=== PATIENT | female | born 1980 | race Caucasian/White ===

== ENCOUNTER 2018-03-05 23:43 | Emergency (ER) | payer BC, OTHER, SELFPAY ==
[2018-03-06 01:38] LABS: Protime INR 0.97
[2018-03-06 01:39] LABS: Absolute Lymphocytes (CBC) 1.8 K/uL (0.7-4.9); Absolute Monocytes 0.6 K/uL (0.1-1.3); Absolute Neutrophil 10.5 K/uL (1.8-8.0); Basophils % 0.5 % (0-1.3); Eosinophils % 1.3 % (0-4.4); Hematocrit 36.6 % (36.0-45.0); Lymphocytes % 13.9 % (15.3-44.8); MCH 28.8 pg (27.0-35.0); MPV 10.5 fL (7.6-11.3); Monocytes % 4.4 % (3.3-12.3); RBC Red Blood Cell Count 4.16 M/uL (3.86-4.86)
[2018-03-06 01:40] LABS: Bicarbonate 25 mEq/L (21-31); Glucose Level 99 mg/dL (65-120); Lipase 28 U/L (22-51); Sodium Level 138 mEq/L (135-145)
[2018-03-06 01:47] LABS: ALT/SGPT 18 IU/L (10-60); AST/SGOT 33 IU/L (10-42); Albumin 3.6 g/dL (3.2-5.5); Alkaline Phosphatase 113 IU/L (42-121); BUN Blood Urea Nitrogen 10 mg/dL (6-20); Bilirubin Direct 0.1 mg/dL (0-0.2); Bilirubin Total 0.2 mg/dL (0.3-1.2); Creatine Phosphokinase 130 IU/L (22-269); Magnesium 1.6 mg/dL (1.8-2.5); Protein, Total 7.1 g/dL (6.0-8.3)
[2018-03-06 01:49] LABS: CKMB Creatine Kinase MB 2.9 ng/ml (0.3-4.0)
[2018-03-06] MEDS ORDERED: MAGNESIUM SULFATE 1 gm IVPB 1 GM/100 ML BAG IV ONE (02:04)
[2018-03-06 03:28] LABS: Urine Specific Gravity 1.015 (1.005-1.030)
[2018-03-06 03:28] LABS: Urine Blood NEGATIVE (NEG); Urine Glucose NEGATIVE (NEG); Urine Protein NEGATIVE (NEG); Urine Specific Gravity 1.015 (1.005-1.030)
--- NOTE | 2018-03-06 03:46 | ER ---
Nurse's Notes [facility] Name: Juanis Davis Age: 37 yrs Sex: Female : 1980 Arrival Date: 03/05/2018 Time: 23:46 Bed 6 Private MD: Diagnosis: Chest pain, unspecified;Urinary tract infection, site not specified Presentation: 03/05 23:49 Presenting complaint: EMS states: "Patient was having back pain and then in move to the ao epigastric area. Patient described as midsternal chest pain. Patient was nauseated and vomited x2 as reported by patient. Patient also complained of SOB." Patient pain level is at 3/10 at this moment. Aspirin [address] to the hospital. Transition of care: patient was not received from another setting of care. Onset of symptoms was March 05, 2018 at 23:00. Initial Sepsis Screen: Does the patient meet any 2 criteria? No. Patient's initial sepsis screen is negative. Does the patient have a suspected source of infection? No. Patient's initial sepsis screen is negative. Care prior to arrival: Medication(s) given: ASA, 325 mg, zofran 4 mg. 23:49 Method Of Arrival: EMS: [facility] ao 23:49 Acuity: FRANCIA 3 ao Triage Assessment: 03/06 00:22 General: Appears in no apparent distress. comfortable, Behavior is calm, cooperative, ao appropriate for age. Pain: Complains of pain in Epigastric pain. 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 - Social history:: Smoking status: Patient/guardian denies using tobacco, Patient/guardian denies using alcohol, street drugs. Screenin:21 Abuse screen: Denies threats or abuse. Denies injuries from another. Nutritional ao screening: No deficits noted. Tuberculosis screening: No symptoms or risk factors identified. Fall Risk None identified. Assessment: 03/05 23:50 General: Appears in no apparent distress. uncomfortable, Behavior is calm, cooperative, ao appropriate for age. Pain: Complains of pain in Epigastric area Pain currently is 3 out of 10 on a pain scale. Neuro: Level of Consciousness is awake, alert, obeys commands, Oriented to person, place, time, situation, Appropriate for age Speech is normal, Facial symmetry appears normal. Cardiovascular: Heart tones S1 S2 Capillary refill < 3 seconds Patient's skin is warm and dry. Respiratory: Airway is patent Respiratory effort is even, unlabored, Respiratory pattern is regular, symmetrical, Breath sounds are clear bilaterally. GI: Abdomen is non-distended. : No signs and/or symptoms were reported regarding the genitourinary system. EENT: No signs and/or symptoms were reported regarding the EENT system. Derm: No signs and/or symptoms reported regarding the dermatologic system. Skin temperature is warm. Musculoskeletal: No signs and/or symptoms reported regarding the musculoskeletal system. 03/06 00:51 Reassessment: Patient appears in no apparent distress at this time. No changes from ao previously documented assessment. Patient and/or family updated on plan of care and expected duration. Pain level reassessed. Patient states feeling better. 02:11 Reassessment: Patient appears in no apparent distress at this time. No changes from ao previously documented assessment. Patient and/or family updated on plan of care and expected duration. Pain level reassessed. Vital Signs: 03/05 23:53 BP 139 / 86; Pulse 86; Resp 16; Temp 98.4(O); Pulse Ox 98% on R/A; Weight 92.99 kg; ao Height 5 ft. 3 in. (160.02 cm); Pain 3/10; 03/06 02:11 BP 128 / 81; Pulse 69; Resp 14; Pulse Ox 100% on R/A; Pain 0/10; ao 03:47 BP 122 / 77; Pulse 75; Resp 16; Temp 98.5; Pulse Ox 100% ; Pain 0/10; tl1 03/05 23:53 Body Mass Index 36.31 (92.99 kg, 160.02 cm) ao ED Course: 03/05 23:46 Patient arrived in ED. em1 23:47 Tristan Cunha NP is PHCP. pm1 23:47 Paul Lozano MD is Attending Physician. pm1 23:49 Jeffery Stoner RN is Primary Nurse. ao 23:50 Maintain EMS IV. Dressing intact. Site clean \\T\\ dry. Gauge \\T\\ site: 22 R AC. ao 23:53 Triage completed. ao 23:55 Arm band placed on Patient placed in an exam room, Patient notified of wait time Emesis ao basin given. 03/06 00:22 Patient has correct armband on for positive identification. court recording monitor on. Pulse ao ox on. NIBP on. 00:36 XRAY Chest (1 view) In Process Unspecified. EDMS 03:04 Report given to PRINCESS Ordoñez. ao 03:49 No provider procedures requiring assistance completed. IV discontinued, intact, tl1 bleeding controlled, No redness/swelling at site. Pressure dressing applied. Administered Medications: 02:15 Drug: Magnesium Sulfate 1 grams Route: IVPB; Infused Over: 1 hrs; Site: right ao antecubital; 04:08 Follow up: IV Status: Completed infusion tl1 04:07 Drug: Rocephin 1 grams Route: IV; Rate: calculated rate; Site: right antecubital; tl1 04:08 Follow up: IV Status: Completed infusion tl1 Outcome: 03:46 Discharge ordered by MD. pm1 03:48 Discharged to home ambulatory, with family. tl1 03:48 Condition: good 03:48 Discharge instructions given to patient, family, Instructed on discharge instructions, follow up and referral plans. Demonstrated understanding of instructions, follow-up care, medications. 04:11 Patient left the ED. tl1 Signatures: Dispatcher [employer] Romero Shahid em1 Smita Lewis RN RN tl1 Jeffery Stoner RN RN ao Marinas, Patrick, ADVERTISING SUPERVISOR ADVERTISING SUPERVISOR pm1
--- NOTE | 2018-03-06 03:46 | EDPHYS ---
Physician Documentation [facility] Name: Juanis Davis Age: 37 yrs Sex: Female : 1980 Arrival Date: 03/05/2018 Time: 23:46 Bed 6 Private MD: ED Physician Paul Lozano HPI: 03/06 00:00 This 37 yrs old Female presents to ER via EMS with complaints of chest pain. pm1 00:00 The patient or guardian reports chest pain that is located primarily in the epigastric pm1 area. Associated signs and symptoms: Pertinent positives: shortness of breath, Pertinent negatives: cough, nausea, near syncope, palpitations, vomiting. The chest pain is described as aching. Duration: The patient or guardian reports a single episode. Modifying factors: the symptoms are aggravated by nothing. Severity of pain: in the emergency department the pain has improved. Patient with onset of pain in back and epigastric area 1 hour prior to ER arrival. Patient with similar symptoms in the past that is resolved with Tums but today's episode was worse. 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 - Social history:: Smoking status: Patient/guardian denies using tobacco, Patient/guardian denies using alcohol, street drugs. ROS: 00:00 Constitutional: Negative for fever, chills, and weight loss, Eyes: Negative for injury, pm1 pain, redness, and discharge, ENT: Negative for injury, pain, and discharge, Neck: Negative for injury, pain, and swelling. 00:00 : Negative for injury, bleeding, discharge, and swelling, MS/Extremity: Negative for injury and deformity, Skin: Negative for injury, rash, and discoloration, Neuro: Negative for headache, weakness, numbness, tingling, and seizure. 00:00 Cardiovascular: Positive for chest pain, Negative for palpitations. 00:00 Respiratory: Positive for shortness of breath, Negative for cough, sputum production, wheezing. 00:00 Abdomen/GI: Positive for abdominal pain, Negative for nausea, vomiting, and diarrhea. 00:00 Back: Positive for Pain. Exam: 00:00 Constitutional: This is a well developed, well nourished patient who is awake, alert, pm1 and in no acute distress. Head/Face: Normocephalic, atraumatic. Eyes: Pupils equal round and reactive to light, extra-ocular motions intact. Lids and lashes normal. Conjunctiva and sclera are non-icteric and not injected. Cornea within normal limits. Periorbital areas with no swelling, redness, or edema. ENT: Nares patent. No nasal discharge, no septal abnormalities noted. Tympanic membranes are normal and external auditory canals are clear. Oropharynx with no redness, swelling, or masses, exudates, or evidence of obstruction, uvula midline. Mucous membranes moist. Neck: Trachea midline, no thyromegaly or masses palpated, and no cervical lymphadenopathy. Supple, full range of motion without nuchal rigidity, or vertebral point tenderness. No Meningismus. Chest/axilla: Normal chest wall appearance and motion. Nontender with no deformity. No lesions are appreciated. Cardiovascular: Regular rate and rhythm with a normal S1 and S2. No gallops, murmurs, or rubs. Normal PMI, no JVD. No pulse deficits. Respiratory: Lungs have equal breath sounds bilaterally, clear to auscultation and percussion. No rales, rhonchi or wheezes noted. No increased work of breathing, no retractions or nasal flaring. 00:00 Back: No spinal tenderness. No costovertebral tenderness. Full range of motion. Skin: Warm, dry with normal turgor. Normal color with no rashes, no lesions, and no evidence of cellulitis. MS/ Extremity: Pulses equal, no cyanosis. Neurovascular intact. Full, normal range of motion. 00:00 Abdomen/GI: Inspection: abdomen appears normal, Bowel sounds: normal, Palpation: soft, mild abdominal tenderness, in the epigastric area. 00:00 Neuro: Orientation: is normal, Motor: is normal, moves all fours, Gait: is steady, at a normal pace, without difficulty. Vital Signs: 03/05 23:53 BP 139 / 86; Pulse 86; Resp 16; Temp 98.4(O); Pulse Ox 98% on R/A; Weight 92.99 kg; ao Height 5 ft. 3 in. (160.02 cm); Pain 3/10; 03/06 02:11 BP 128 / 81; Pulse 69; Resp 14; Pulse Ox 100% on R/A; Pain 0/10; ao 03:47 BP 122 / 77; Pulse 75; Resp 16; Temp 98.5; Pulse Ox 100% ; Pain 0/10; tl1 03/05 23:53 Body Mass Index 36.31 (92.99 kg, 160.02 cm) ao MDM: 03/05 23:48 Patient medically screened. rose 03/06 03:45 Data reviewed: vital signs. Data interpreted: Pulse oximetry: on room air is 100 %. pm1 Interpretation: normal. Counseling: I had a detailed discussion with the patient and/or guardian regarding: the historical points, exam findings, and any diagnostic results supporting the discharge/admit diagnosis, lab results, radiology results, the need for outpatient follow up, to return to the emergency department if symptoms worsen or persist or if there are any questions or concerns that arise at home. 03:45 Differential diagnosis: acute myocardial infarction, cholecystitis, Cholelithiasis pm1 gastroesophageal reflux disease (GERD), pancreatitis, peptic ulcer disease. 04:10 PRACHI Risk Score: TOTAL SCORE = 0. ED course: atypical chest pain with troponin negative pm1 4 hours after onset of symptoms. Patient currently pain free and symptoms similar to prior episodes resolved with Tums. 03/06 00:04 Order name: Basic Metabolic Panel; Complete Time: 02:01 pm1 03/06 00:04 Order name: BNP; Complete Time: 02:08 pm1 03/06 00:04 Order name: CBC with Diff; Complete Time: 01:43 pm1 03/06 00:04 Order name: Ckmb; Complete Time: 02:01 pm1 03/06 00:04 Order name: CPK; Complete Time: 02:01 pm1 03/06 00:04 Order name: LFT's; Complete Time: 02:01 pm1 03/06 00:04 Order name: Magnesium; Complete Time: 02:01 pm1 03/06 00:04 Order name: PT-INR; Complete Time: 01:43 pm1 03/06 00:04 Order name: Ptt, Activated; Complete Time: 01:43 pm1 03/06 00:04 Order name: Troponin (emerg Dept Use Only); Complete Time: 02:01 pm1 03/06 01:29 Order name: Lipase; Complete Time: 02:01 EDMS 03/06 02:34 Order name: Troponin (emerg Dept Use Only); Complete Time: 03:45 pm1 03/06 02:47 Order name: Urine Dipstick--Ancillary (enter results); Complete Time: 03:45 em1 03/06 00:04 Order name: Urine Test (obtain specimen); Complete Time: 02:47 pm1 03/06 00:04 Order name: XRAY Chest (1 view) pm1 03/06 00:04 Order name: EKG; Complete Time: 00:05 pm1 03/06 00:04 Order name: Cardiac monitoring; Complete Time: 02:03 pm1 03/06 00:04 Order name: EKG - Nurse/Tech; Complete Time: 02:03 pm1 03/06 00:04 Order name: IV Saline Lock; Complete Time: 00:20 pm1 03/06 00:04 Order name: Labs collected and sent; Complete Time: 02:03 pm1 03/06 00:04 Order name: O2 Per Protocol; Complete Time: 00:20 pm1 03/06 00:04 Order name: O2 Sat Monitoring; Complete Time: 00:20 pm1 03/06 00:04 Order name: Urine Dipstick-Ancillary (obtain specimen); Complete Time: 02:47 pm1 03/06 02:58 Order name: Urine --Ancillary (enter results); Complete Time: 03:45 em1 Administered Medications: 02:15 Drug: Magnesium Sulfate 1 grams Route: IVPB; Infused Over: 1 hrs; Site: right ao antecubital; 04:08 Follow up: IV Status: Completed infusion tl1 04:07 Drug: Rocephin 1 grams Route: IV; Rate: calculated rate; Site: right antecubital; tl1 04:08 Follow up: IV Status: Completed infusion tl1 Disposition: 03/06/18 03:46 Discharged to Home. Impression: Chest pain, unspecified, Urinary tract infection, site not specified. - Condition is Stable. - Discharge Instructions: Nonspecific Chest Pain, Urinary Tract Infection. - Prescriptions for Bactrim DS 800- 160 mg Oral Tablet - take 1 tablet by ORAL route every 12 hours for 10 days; 20 tablet. - Medication Reconciliation Form, Thank You Letter form. - Follow up: Emergency Department; When: As needed; Reason: Worsening of condition. Follow up: Private Physician; When: 2 - 3 days; Reason: Recheck today's complaints, Continuance of care, Re-evaluation by your physician. - Problem is new. - Symptoms have improved. Addendum: 03/07/2018 07:28 Co-signature as Attending Physician, Paul Lozano MD I agree with the assessment and c tyler plan of care. Signatures: Dispatcher [employer] Paul Quiroga MD MD cha Lasagna, Tonya, RN RN tl1 Jeffery Stoner RN RN Tristan Elam NP LINUX SERVER ADMINISTRATOR pm1 Corrections: (The following items were deleted from the chart) 03/06 01:28 00:20 LIPASE+C.LAB.BRZ ordered. [facility]
[2018-03-06] MEDS ORDERED: CEFTRIAXONE/SWI 1gm 1 GM/10 ML SYR ONE (03:57)
--- NOTE | 2018-03-06 07:14 | EKG ---
Test Date: 2018-03-06 Test Time: 01:02:04 Scientific Informatics Project Leader: REGINA MEASUREMENT RESULTS: Intervals: Rate: 76 OR: 158 QRSD: 84 QT: 392 QTc: 441 [place]: P: 20 OR: 158 QRS: 33 T: 20 INTERPRETIVE STATEMENTS: Normal sinus rhythm Normal ECG No previous ECG available for comparison Electronically Signed On 03-06-18 07:13:39 CDT by Nikita Dietrich
--- NOTE | 2018-03-06 08:45 | RAD REPORT ---
EXAM DESCRIPTION: Gini Single View03/06/2018 12:36 am CLINICAL HISTORY: Chest pain COMPARISON: none FINDINGS: A small opacity overlies the right lung base. The remainder of the lungs appear Clear of acute infiltrate. The heart is normal size IMPRESSION: Small opacity overlying the right lung base probably representing confluence of ribs and vessels. A small right basilar pulmonary infiltrate is another consideration. If the patient's sympt oms persist PA and lateral chest series would be recommended
== END 2018-03-06 04:11 | disposition home or self-care (01) ==
LOC: ER 23:43
DX: N39.0 Urinary tract infection, site not specified (principal)
CPT/HCPCS: 36415; 71045; 80048; 80076; 81003; 81025; 82550; 82553; 83690; 83735; 83880; 84484; 85025; 85610; 85730; 93005; 96365; 96366; 96375; 99284; J0696; J3475

== ENCOUNTER 2020-05-03 11:43 | Emergency (ER) | payer BC, SELFPAY ==
[2020-05-03] MEDS ORDERED: ONDANSETRON 4 MG/2 ML VIAL ONE (12:11)
[2020-05-03] MEDS ORDERED: MORPHINE 2 MG/ML SYR ONE ×2 (12:11→18:23)
[2020-05-03] MEDS ORDERED: NA CHLORIDE 0.9% 1,000 ML ONE (12:11)
[2020-05-03 12:59] LABS: Urine Blood NEGATIVE (NEG); Urine Glucose NEGATIVE (NEG); Urine Protein 1+ (NEG); Urine Specific Gravity >1.030 (1.005-1.030); Urine pH 5.5 (5.0-7.0)
[2020-05-03 13:10] LABS: Urine Bacteria 20-50 /HPF (<20); Urine Culture Reflex Order NOT NEEDED; Urine RBC <5 /HPF (NONE SEEN); Urine Trichomonas PRESENT (NONE SEEN)
[2020-05-03 14:04] LABS: Basophils % 0.6 % (0-1.3); Hematocrit 37.4 % (36.0-45.0); Lymphocytes % 11.8 % (15.3-44.8); MPV 9.7 fL (7.6-11.3); RBC Red Blood Cell Count 4.22 M/uL (3.86-4.86)
[2020-05-03 14:13] LABS: ALT/SGPT 29 U/L (12-78); AST/SGOT 55 U/L (15-37); Albumin 3.2 g/dL (3.4-5.0); Alkaline Phosphatase 185 U/L (45-117); BUN Blood Urea Nitrogen 11 mg/dL (7-18); Bicarbonate 26 mmol/L (21-32); Bilirubin Direct < 0.1 mg/dL (0-0.2); Bilirubin Total 0.2 mg/dL (0.2-1.0); Glucose Level 106 mg/dL (74-106); Lipase 140 U/L (73-393); Potassium 4.6 mmol/L (3.5-5.1); Protein, Total 7.1 g/dL (6.4-8.2); Sodium Level 140 mmol/L (136-145)
--- NOTE | 2020-05-03 15:50 | RAD REPORT ---
EXAM DESCRIPTION: US - Abdomen Exam Limited - 05/03/2020 3:23 pm CLINICAL HISTORY: Abdominal pain. COMPARISON: None. FINDINGS: The gallbladder is filled with sludge. Mild gallbladder wall thickening Definite cholelithiasis is not visualized The biliary tree is normal caliber. IMPRESSION: Gallbladder is filled with extensive sludge Mild gallbladder wall thickening. The exam discussed with Dr. Dias in the Emergency Room
--- NOTE | 2020-05-03 18:34 | ER ---
Nurse's Notes [facility] Name: Juanis Davis Age: 39 yrs Sex: Female : 1980 Arrival Date: 05/03/2020 Time: 11:46 Bed 8 Private MD: Diagnosis: Upper abdominal pain, unspecified;Abnormal results of liver function studies Presentation: 05/03 11:40 Chief complaint: EMS states: Abdominal pain left upper quadrant radiates to the left rb1 back, Nausea and vomiting. 20 G L AC administered Zofran 4 mg IVP x 1. Ate late last night. NKDA, no history, no medications, and a tubal ligation. Coronavirus screen: Proceed with normal triage. Ebola Screen: Patient denies travel to an Ebola-affected area in the 21 days before illness onset. Initial Sepsis Screen: Does the patient meet any 2 criteria? No. Patient's initial sepsis screen is negative. Does the patient have a suspected source of infection? No. Patient's initial sepsis screen is negative. Risk Assessment: Do you want to hurt yourself or someone else? Patient reports no desire to harm self or others. Onset of symptoms was May 03, 2020. 11:40 Method Of Arrival: EMS: [facility] rb1 11:40 Acuity: FRANCIA 3 rb1 Triage Assessment: 11:40 General: Appears in no apparent distress. comfortable, Behavior is calm, cooperative, rb1 Denies fever. Pain: Complains of pain in left upper quadrant Pain radiates to left low back Pain currently is 5 out of 10 on a pain scale. Neuro: Level of Consciousness is awake, alert, obeys commands, Oriented to person, place, time, situation. Cardiovascular: Capillary refill < 3 seconds. Respiratory: Airway is patent Respiratory effort is even, unlabored, Respiratory pattern is regular, symmetrical, Denies shortness of breath. GI: Reports nausea, vomiting. : No signs and/or symptoms were reported regarding the genitourinary system. Derm: Skin is pink, warm \T\ dry. Musculoskeletal: Range of motion: intact in all extremities. 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 - Social history:: Smoking status: Patient/guardian denies using. Screenin:40 Abuse screen: Denies threats or abuse. Nutritional screening: No deficits noted. rb1 Tuberculosis screening: No symptoms or risk factors identified. Fall Risk None identified. Assessment: 11:40 GI: Bowel sounds present X 4 quads. Abd is soft X 4 quads. rb1 13:12 General: LABS RECOLLECTED. VS STABLE ON MONITOR. bp 14:33 Reassessment: RESULTS PENDING. NO S/S ACUTE DISTRESS. bp 15:54 Reassessment: U/S RESULTS PENDING. VS STABLE ON MONITOR. bp 16:19 Reassessment: Patient appears in no apparent distress at this time. Patient and/or rb1 family updated on plan of care and expected duration. Pain level reassessed. Patient is alert, oriented x 3, equal unlabored respirations, skin warm/dry/pink. Patient states feeling better. Patient states symptoms have improved. 17:16 Reassessment: Patient appears in no apparent distress at this time. No changes from rb1 previously documented assessment. 18:14 Reassessment: Patient appears in no apparent distress at this time. Patient and/or rb1 family updated on plan of care and expected duration. Pain level reassessed. Patient is alert, oriented x 3, equal unlabored respirations, skin warm/dry/pink. 19:53 General: Appears in no apparent distress. Behavior is calm, cooperative, appropriate ea for age. Pain: Denies pain. Neuro: Level of Consciousness is awake, alert, obeys commands, Oriented to person, place, time, situation. Cardiovascular: Patient's skin is warm and dry. Respiratory: Airway is patent Respiratory effort is even, unlabored, Respiratory pattern is regular, symmetrical. Derm: Skin is pink, warm \T\ dry. 20:11 Reassessment: Report given to Jeffery SÁNCHEZ at [facility] in the [facility]. ea 20:42 Reassessment: Patient and/or family updated on plan of care and expected duration. Pain ea level reassessed. Patient is alert, oriented x 3, equal unlabored respirations, skin warm/dry/pink. EMS at facility for transfer. Report given to [facility]. Pt left ED via stretcher per EMS, pt tolerating well. Vital Signs: 11:40 BP 158 / 109; Pulse 86; Resp 17; Temp 98.1; Pulse Ox 100% ; Weight 98.88 kg (R); Height rb1 5 ft. 3 in. (160.02 cm); Pain 5/10; 13:11 BP 130 / 86; Pulse 87; Resp 16; Pulse Ox 100% ; bp 14:32 BP 135 / 87; Pulse 85; Resp 16; Pulse Ox 99% ; bp 15:20 BP 108 / 97; Pulse 84; Resp 17; Pulse Ox 100% ; rb1 16:19 BP 160 / 94; Pulse 71; Resp 17; Pulse Ox 97% ; rb1 17:15 BP 135 / 86; Pulse 81; Resp 16; Pulse Ox 100% ; rb1 18:14 BP 144 / 83; Pulse 84; Resp 17; Pulse Ox 100% on R/A; Pain 8/10; rb1 19:00 BP 144 / 93; Pulse 76; Resp 18; Pulse Ox 100% ; ea 20:30 BP 131 / 79; Pulse 80; Resp 18; Temp 98; Pulse Ox 98% on R/A; ea 11:40 Body Mass Index 38.62 (98.88 kg, 160.02 cm) rb1 ED Course: 11:40 Arm band placed on right wrist. rb1 11:40 Patient has correct armband on for positive identification. Bed in low position. Call rb1 light in reach. Side rails up X 1. Pulse ox on. NIBP on. Warm blanket given. 11:40 Maintain EMS IV. Dressing intact. Good blood return noted. Site clean \T\ dry. Gauge \T\ rb 1 site: 20 G L AC. 11:46 Patient arrived in ED. rb1 11:51 Triage completed. rb1 11:52 Paul Lacey PA is PHCP. cp 11:52 Bubba Dias MD is Attending Physician. cp 11:55 Leelee Blackmon, PRINCESS is Primary Nurse. rb1 15:23 US Abdomen Limited: RUQ In Process Unspecified. EDMS 17:13 attempted transfer to [facility] [place], talked to rosanne. bd 18:58 Report given to PRINCESS Garrett. rb1 19:46 acceptance given by Rosanne Holder. Dr. Bhardwaj accepted pt. \T\ [id number] call report to ar5 [phone]. 19:54 No provider procedures requiring assistance completed. Patient transferred, IV remains ea in place. Administered Medications: 12:18 Drug: morphine 2 mg Route: IVP; Site: right antecubital; rb1 12:18 Drug: NS 0.9% 1000 ml Route: IV; Rate: 1 bolus; Site: right antecubital; rb1 20:41 Follow up: Response: No adverse reaction; IV Status: Completed infusion; IV Intake: ea 1000ml 12:18 Drug: Zofran (Ondansetron) 4 mg Route: IVP; Site: right antecubital; rb1 12:30 Follow up: Response: No adverse reaction; Nausea is decreased rb1 18:18 Drug: morphine 2 mg Route: IVP; Site: right antecubital; rb1 18:40 Follow up: Response: No adverse reaction; Pain is decreased rb1 18:48 Drug: metroNIDAZOLE 2 grams Route: PO; rb1 19:15 Follow up: Response: No adverse reaction ea 18:50 Drug: Rocephin 1 grams Route: IV; Rate: calculated rate; Site: right antecubital; rb1 19:15 Follow up: Response: No adverse reaction; IV Status: Completed infusion ea Intake: 20:41 IV: 1000ml; Total: 1000ml. ea Outcome: 18:33 ER care complete, transfer ordered by MD. cp 19:54 Instructed on the need for transfer. ea 20:42 Transferred by ground EMS to [facility], Transfer form completed. ea 20:42 Condition: stable 20:43 Patient left the ED. ea Signatures: Dispatcher [employer] EDMS Dimple Mcdermott Corey, PA PA cp Barber, Rebecca, RN RN Tami Barney RN RN ea Peltier, Brian, RN RN bp Robles, Autumn [facility]
--- NOTE | 2020-05-03 18:34 | EDPHYS ---
Physician Documentation [facility] Name: Juanis Davis Age: 39 yrs Sex: Female : 1980 Arrival Date: 05/03/2020 Time: 11:46 Bed 8 Private MD: ED Physician Bubba Dias HPI: 05/03 12:00 This 39 yrs old Female presents to ER via EMS with complaints of Abdominal cp Pain. 12:00 The patient presents with abdominal pain in the upper abdomen. cp 12:00 Onset: The symptoms/episode began/occurred yesterday, and became worse today. The cp symptoms radiate to back. Associated signs and symptoms: Pertinent positives: nausea and vomiting, Pertinent negatives: blood in stools, chest pain, constipation, diarrhea, fever. The symptoms are described as constant. 12:00 Severity of pain: in the emergency department the pain is actually worse moderately. 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 - Social history:: Smoking status: Patient/guardian denies using. ROS: 12:05 Abdomen/GI: Positive for abdominal pain, nausea and vomiting, Negative for diarrhea, cp constipation. 12:05 Eyes: Negative for injury, pain, redness, and discharge. cp 12:05 Constitutional: Negative for body aches, chills, fever, poor PO intake. 12:05 ENT: Negative for ear pain, sore throat, difficulty swallowing, difficulty handling secretions. 12:05 Cardiovascular: Negative for chest pain, palpitations. 12:05 Respiratory: Negative for cough, shortness of breath, wheezing. 12:05 Back: Positive for radiated pain, of the mid back area. 12:05 : Negative for urinary symptoms. 12:05 Skin: Negative for rash. 12:05 Neuro: Negative for altered mental status, headache, weakness. 12:05 All other systems are negative. Exam: 12:10 Constitutional: The patient appears in no acute distress, alert, awake, non-toxic, well cp developed, well nourished, uncomfortable. 12:10 Head/Face: Normocephalic, atraumatic. cp 12:10 Eyes: Periorbital structures: appear normal, Conjunctiva: normal, no exudate, no injection, Sclera: no appreciated abnormality, Lids and lashes: appear normal, bilaterally. 12:10 ENT: External ear(s): are unremarkable, Nose: is normal, Mouth: is normal, Posterior pharynx: is normal, airway is patent, no erythema, no exudate. 12:10 Chest/axilla: Inspection: normal, Palpation: is normal, no crepitus, no tenderness. 12:10 Cardiovascular: Rate: normal, Rhythm: regular. 12:10 Respiratory: the patient does not display signs of respiratory distress, Respirations: normal, no use of accessory muscles, no retractions, labored breathing, is not present, Breath sounds: are clear throughout, no decreased breath sounds. 12:10 Abdomen/GI: Inspection: abdomen appears normal, Bowel sounds: active, all quadrants, Palpation: soft, in all quadrants, moderate abdominal tenderness, in the right upper quadrant and left upper quadrant, rebound tenderness, is not appreciated, involuntary guarding, is elicited in the right upper quadrant. 12:10 Back: pain, that is moderate, of the mid back area, ROM is normal. Vital Signs: 11:40 BP 158 / 109; Pulse 86; Resp 17; Temp 98.1; Pulse Ox 100% ; Weight 98.88 kg (R); Height rb1 5 ft. 3 in. (160.02 cm); Pain 5/10; 13:11 BP 130 / 86; Pulse 87; Resp 16; Pulse Ox 100% ; bp 14:32 BP 135 / 87; Pulse 85; Resp 16; Pulse Ox 99% ; bp 15:20 BP 108 / 97; Pulse 84; Resp 17; Pulse Ox 100% ; rb1 16:19 BP 160 / 94; Pulse 71; Resp 17; Pulse Ox 97% ; rb1 17:15 BP 135 / 86; Pulse 81; Resp 16; Pulse Ox 100% ; rb1 18:14 BP 144 / 83; Pulse 84; Resp 17; Pulse Ox 100% on R/A; Pain 8/10; rb1 19:00 BP 144 / 93; Pulse 76; Resp 18; Pulse Ox 100% ; ea 20:30 BP 131 / 79; Pulse 80; Resp 18; Temp 98; Pulse Ox 98% on R/A; ea 11:40 Body Mass Index 38.62 (98.88 kg, 160.02 cm) rb1 MDM: 11:54 Patient medically screened. 12:15 Differential diagnosis: appendicitis, cholecystitis, Cholelithiasis, non-specific abd cp pain, pancreatitis, Peptic Ulcer Disease, Perf. Duodenal Ulcer, Perf. Gastric Ulcer, Pyelonephritis, Ureterolithiasis, urinary tract infection. 16:15 Data reviewed: vital signs, nurses notes, lab test result(s), radiologic studies, cp ultrasound, I have discussed the patient's presentation/case with the attending Emergency Department Physician;. 16:45 Physician consultation: Cornelius Solorio MD was contacted at 16:45, regarding patient's cp condition, after a discussion of the case, a recommendation for transfer for higher level of care is made, due to elevated liver enzymes and no of GI services. 18:20 ED course: Spoke with Dr. Bhardwaj at 1815, [facility] hospitalist, who accepted cp patient. 05/03 11:54 Order name: Basic Metabolic Panel; Complete Time: 14:14 05/03 11:54 Order name: CBC with Diff; Complete Time: 14:14 05/03 18:04 Interpretation: Normal except: OMER% 79.0; LYM% 11.8. 05/03 11:54 Order name: Hepatic Function; Complete Time: 14:14 05/03 16:06 Interpretation: Normal except: AST 55; ALK 185; ALB 3.2; GLOB 3.9; A/G 0.8. 05/03 11:54 Order name: Lipase; Complete Time: 14:14 05/03 11:54 Order name: Urine Microscopic Only; Complete Time: 13:14 05/03 12:50 Order name: Urine Dipstick--Ancillary (enter results); Complete Time: 13:14 05/03 11:54 Order name: IV Saline Lock; Complete Time: 12:21 05/03 12:50 Order name: Urine --Ancillary (enter results); Complete Time: 13:14 05/03 13:54 Order name: US Abdomen Limited: RUQ; Complete Time: 16:01 05/03 16:13 Interpretation: Report reviewed. 05/03 11:54 Order name: Labs collected and sent; Complete Time: 13:11 cp 05/03 11:54 Order name: Urine Dipstick-Ancillary (obtain specimen); Complete Time: 12:51 cp 05/03 11:54 Order name: Urine Test (obtain specimen); Complete Time: 12:50 cp 05/03 12:31 Order name: Labs - recollect needed: recollect everything; Complete Time: 13:11 bd Administered Medications: 12:18 Drug: morphine 2 mg Route: IVP; Site: right antecubital; rb1 12:18 Drug: NS 0.9% 1000 ml Route: IV; Rate: 1 bolus; Site: right antecubital; rb1 20:41 Follow up: Response: No adverse reaction; IV Status: Completed infusion; IV Intake: ea 1000ml 12:18 Drug: Zofran (Ondansetron) 4 mg Route: IVP; Site: right antecubital; rb1 12:30 Follow up: Response: No adverse reaction; Nausea is decreased rb1 18:18 Drug: morphine 2 mg Route: IVP; Site: right antecubital; rb1 18:40 Follow up: Response: No adverse reaction; Pain is decreased rb1 18:48 Drug: metroNIDAZOLE 2 grams Route: PO; rb1 19:15 Follow up: Response: No adverse reaction ea 18:50 Drug: Rocephin 1 grams Route: IV; Rate: calculated rate; Site: right antecubital; rb1 19:15 Follow up: Response: No adverse reaction; IV Status: Completed infusion ea Disposition: 05/04 14:56 Co-signature as Attending Physician, Bubba Dias MD I agree with the assessment and kdr plan of care. Disposition: 05/03/20 18:33 Transfer ordered to [facility]. Diagnosis are Upper abdominal pain, unspecified, Abnormal results of liver function studies. - Reason for transfer: Higher level of care. - Accepting physician is DR. - Condition is Stable. - Problem is new. - Symptoms have improved. Signatures: Dispatcher [employer] EDMS Dimple Mcdermott Kevin, MD MD kdr Roszak, Josh, PA PA [id number] Paul Lacey PA PA cp Barber, Rebecca, RN RN rb1 Antunez, Elena, RN RN ea Corrections: (The following items were deleted from the chart) 05/03 20:43 18:33 05/03/2020 18:33 Transfer ordered to [facility]. ea Diagnosis is Upper abdominal pain, unspecified; Abnormal results of liver function studies. Reason for transfer: Higher level of care. Accepting physician is . Condition is Stable. Problem is new. Symptoms have improved. cp 23:38 20:07 ED course: Spoke with Dr. Bhardwaj at [facility] who accepted patient.. [id number]
[2020-05-03] MEDS ORDERED: CEFTRIAXONE/SWI 1gm 1 GM/10 ML SYR ONE (18:42)
[2020-05-03] MEDS ORDERED: metroNIDAZOLE 500 MG TABLET ONE (18:50)
[2020-05-03 21:03] VITALS: BP 131/79; TEMP 98; O2SAT 98
== END 2020-05-03 20:43 | disposition short-term general hospital (02) ==
LOC: ER 11:43
DX: R94.5 Abnormal results of liver function studies (principal)
CPT/HCPCS: 36415; 76705; 80048; 80076; 81003; 81015; 81025; 83690; 85025; 96361; 96365; 96375; 99285; J0696; J2270; J2405; J7030

== ENCOUNTER 2022-01-09 10:24 | Emergency (ER) | payer OTHER, SELFPAY ==
--- OUTSIDE RECORDS SUMMARY | 2022-01-09 10:28 | XMS REPORT | Continuity of Care Document ---
:1980 Author Organization [facility] t Address [address] [place] [address] [place] [id number] Care Team Providers Name Role Phone PCP, DOES NOT HAVE A Primary Care Physician Unavailable TALHA MOSCOSO Attending Clinician Unavailable THAIS MARTINEZ Attending Clinician Unavailable Alvin STEELE Attending Clinician Unavailable Alvin Willis Attending Clinician Provider, Urgent Care Attending Clinician Unavailable KAITY Attending Clinician Unavailable TALHA MOSCOSO Admitting Clinician Unavailable THAIS MARTINEZ Admitting Clinician Unavailable GARCIA Admitting Clinician Unavailable Payers Payer Name Policy Type Policy Number Effective Date Expiration Date S ource CDC REVIEW [id number] 2020 00:00:00 ZZCDCREVIEW [id number] 2019 2019 00:00:00 00:00:00 [facility] [id number] 2016 00:00:00 MED[place]ID [place] [id number] 2020 00:00:00 Problems Condition Condition Condition Status Onset Resolution Last Treating Co mments Source Name Details Category Date Date Treatment Clinician Date Symptomati Symptomati Disease Active [facility] chole[facility]ithi cholelithi 00:00: Me dical asis asis 00 Center COVID-19 COVID-19 Disease [facility] - detected detected 00:[facility]: Medica l 00 Center Acute Acute Disease Active [facility] cholecysti 6-18 Sahra kes - tis tis 00:00: Medical 00 Center No known No known Disease Unive rs active active ity of problems problems [facility] Allergies, Adverse Reactions, Alerts Allergy Allergy Status Severity Reaction(s) Onset Inactive Treating Comm ents Source Name Type Date Date Clinician NO KNOWN Allergy Active [facility] NO KNOWN Drug Active Univers ALLERGIE Class ity of S [facility] Social History Social Habit Start Date Stop Date Quantity Comments Source History SDOH [facility] Drinks History SDOH [facility] - Alcohol Binge Medical Rocio ter History SDOH [facility] - Alcohol Comment Medical C enter Exposure to Not sure [facility] SARS-CoV-2 [facility] (event) [place] Alcohol intake 2022-01-02 2022-01-02 Ex-drinker [facility] 00:00:00 00:00:00 (finding) [facility] Tobacco use and 2021-12-31 2021-12-31 Never used Universit y of exposure 00:00:00 00:00:00 [facility] History SDOH 2020-06-19 2020-06-[address] [facility] - Alcohol Frequency 00:00:00 00:00:00 [facility] Tobacco Comment 2020-05-04 2020-05-[address] [facility] - 00:[facility]:00 00:00:00 they [facility] Sex Assigned At [address] [address] [facility]ra kes - 00:00:00 00:00:00 [facility] Smoking Status Start Date Stop Date Source Never smoker [facility] Former smoker 2020-05-04 00:00:00 2020-05-04 00:00:[address] [facility] Medications Ordered Filled Start Stop Current Ordering Indication Dosage Frequency Signature Comments Components Source Medication Medication Date Date Medication? Clinician (SIG) Name Name methylPREDN Yes [id number] Take by Univers ISolone 2-17 mouth ity of (MEDROL, 00:00: SEE-INSTRU Scooter as INEZ,) 4 mg 00 CTIONS. Medica l tablets follow Branch package directions famotidine Yes [id number] 20mg Take 1 Univers 20 mg 2-17 tablet by ity of tablet 00:00: mouth 2 [place] 00 (two) Medical times Branch daily. fluconazole Yes Univer s 150 mg 2-15 ity of tablet 00:00: [address] acetaminoph 2020- No 650mg Take [address] en 06-22 tablets [facility] - (TYLENOL) 00:00: 23:59 (650 mg Medi korey 325 MG 00 :00 total) by Center tablet mouth every 6 (six) hours as needed for Pain for up to 360 days. acetaminoph 2020- No 650mg Take [address] en 06-22 tablets [facility] - (TYLENOL) 00:00: 23:59 (650 mg Medi korey 325 MG 00 :00 total) by Center tablet mouth every 6 (six) hours as needed for Pain for up to 360 days. Vital Signs Vital Name Observation Time Observation Value Comments Source HEIGHT 2020-06-12 00:00:00 160 cm WEIGHT 2020-06-12 00:00:00 99.5 kg HEIGHT 2020-05-03 00:00:00 160 cm WEIGHT 2020-05-03 00:00:00 99.791 kg Systolic blood 2022-01-02 18:47:00 137 mm[Hg] Univer sity of pressure [facility] Diastolic blood 2022-01-02 18:47:00 88 mm[Hg] [facility] Heart rate 2022-01-02 18:46:00 79 /min General acute hospital Body temperature 2022-01-02 18:46:00 36.39 [facility] height 2022-01-02 18:46:00 162.6 cm General acute hospital Body weight 2022-01-02 18:46:00 102.921 kg General acute hospital BMI 2022-01-02 18:46:00 38.95 kg/m2 General acute hospital Oxygen saturation in 2022-01-02 18:46:00 98 /min [facility] Arterial blood by [employer] korey Pulse oximetry Branch HEIGHT 2020-06-12 00:00:00 160 cm WEIGHT 2020-06-12 00:00:00 99.5 kg HEIGHT 2020-05-15 00:00:00 160 cm WEIGHT 2020-05-15 00:00:00 95.255 kg HEIGHT 2020-05-03 00:00:00 160 cm WEIGHT 2020-05-03 00:00:00 99.791 kg Procedures This patient has no known procedures. Plan of Care Planned Activity Planned Date Details Comments Source Future Scheduled 2021-07-[address] [facility] - Test 00:00:00 (#1) [code = Medical Center INFLUENZA VACCINE (#1)] Future Scheduled 2021-07-[address] [facility] - Test 00:00:00 (#1) [code = Medical Center INFLUENZA VACCINE (#1)] Future Scheduled [address] [facility] - Test 00:00:00 (12+) [code = Medical Center DEPRESSION SCREENING (12+)] Future Scheduled [address] [facility] - Test 00:00:00 (12+) [code = Medical Center DEPRESSION SCREENING (12+)] Future Scheduled [address] [facility] 00:00:00 [facility] cervix (procedure) [code = 453660371] Future Scheduled [address] [facility] - Test 00:00:00 [facility] cervix (procedure) [code = 121705687] Future Scheduled [address] [facility] - Test 00:00:00 (procedure) [code = Medical Center [id number]] Future Scheduled [address] - Test 00:00:00 (procedure) [code = [facility] [id number]] Future Scheduled 1999 DTAP/TDAP/TD VACCINES [facility] Test 00:00:00 (1 - Tdap) [code = Medical C enter DTAP/TDAP/TD VACCINES (1 - Tdap)] Future Scheduled 1999 DTAP/TDAP/TD VACCINES [facility] Test 00:00:00 (1 - Tdap) [code = Medical C enter DTAP/TDAP/TD VACCINES (1 - Tdap)] Future Scheduled 1998 HEPATITIS C SCREENING [facility] Test 00:00:00 [code = HEPATITIS C Medical Center SCREENING] Future Scheduled 1998 HEPATITIS C [facility]CRE[facility]ING [facility] Test 00:00:00 [code = HEPATITIS C Medical Center SCREENING] Future Scheduled 1992 COVID-19 VACCINE (1) [facility] - Test 00:00:00 [code = COVID-[address] VACCINE (1)] Future Scheduled 1992 COVID-19 VACCINE (1) [facility] - Test 00:00:00 [code = COVID-[address] VACCINE (1)] Encounters Start End Encounter Admission Attending Care Care Encounter Source Date/Time Date/Time Type Type Clinicians Facility Department ID 2021-08-21 Outpatient ROGELIO [facility] Surgery [id number] SLE 01:17:39 HERNAN 2020-05-03 Inpatient ER JUAN [facility] Gastro [id number] SLE 22:11:00 ANGELIC 2022-01-09 2022-01-09 Outpatient R [facility] [id number] Univers 16:00:00 16:00:00 [id number] [facility] 2022-01-02 2022-01-02 [id number] Univers 12:30:00 13:09:33 SILVANA [facility] 2022-01-02 2022-01-02 Office [facility] [id number] Univers 12:30:00 13:09:33 Visit Silvana [facility] [id number] i ty of [place] [id number] Scooter as OTTO?BLEA [phone] Ny dicdanielle [place] OFFICE BUILDING 2020-06-19 2020-06-[address] [facility] [id number] [facility] 00:00:00 00:00:00 2020-06-03 2020-06-03 Letter Provider, [facility] [id number] 00:00:00 00:00:00 (Out) [facility] Urgent Health [id number] Care [place] [id number] Professio [phone] nal 044 Office Building One 2020-05-15 2020-05-15 Outpatient [facility] [id number] SLE 00:00:00 00:00:00 BIJI Results Test Description Test Time Test Comments Results Result Comments Source TISSUE EXAM 2020-06-26 Surgical Pathology 11:16:00 Report Case: [id number] Authorizing Provider: Hernan Moscoso MD Collected: 06/22/2020 12:30 PM Ordering Location: [facility] PERIOPERATIVE Received: 06/22/2020 01:37 PM SERVICES Pathologist: Matthew Michael MD Specimen: Gallbladder A. GALL BLADDER, CHOLECYSTECTOMY: - CHRONIC CHOLECYSTITIS WITH CHOLELITHIASIS. - NEGATIVE FOR DYSPLASIA OR MALIGNANCY. Signing Pathologist Direct Phone Line: [phone] john signed by Matthew Michael MD on 06/26/2020 at 11:16 [id number] cholecystitis GallbladderA. Received fresh, labeled with the patient's name, MRN and "gallbladder" and consists of an intact gallbladder (11.3 x 3.5 x 2.5 cm) which has a clipped cystic duct. The serosa is pink and smooth with areas of congestion in the fundus and neck. A cystic duct lymph node is not present. The gallbladder is opened to reveal green viscous bile and multiple (greater than 10) yellow-black choleliths ranging 0.3-2.3 cm. The mucosa is suarez-pink, partially effaced and trabeculated. The wall thickness ranges 0.1-0.3 cm. No gross lesions are identified. Research Project Manager sections are submitted.Section codeA1: Cystic duct margin, en faceA2: Gallbladder wallChelsea JOE Alejandro PA (ASCP)Performed COMPREHENSIVE METABOLIC PANEL 2020-05-07 04:35:00 Test Item Value Reference Range Interpretation Comme nts TOTAL PROTEIN (BEAKER) 6.7 gm/dL 6.0-8.3 (test code = 770) ALBUMIN (BEAKER) (test code 3.6 g/dL 3.5-5.0 = 1145) ALKALINE PHOSPHATASE 113 U/L 40-150 (BEAKER) (test code = 346) BILIRUBIN TOTAL (BEAKER) 0.3 mg/dL 0.2-1.2 (test code = 377) SODIUM (BEAKER) (test code 140 meq/L 136-145 = 381) POTASSIUM (BEAKER) (test 3.5 meq/L 3.5-5.1 code = 379) CHLORIDE (BEAKER) (test 107 meq/L 98-107 code = 382) CO2 (BEAKER) (test code = 25 meq/L 22-29 355) BLOOD UREA NITROGEN 4 mg/dL 7-21 L (BEAKER) (test code = 354) CREATININE (BEAKER) (test 0.69 mg/dL 0.57-1.25 code = 358) GLUCOSE RANDOM (BEAKER) 79 mg/dL 70-105 (test code = 652) CALCIUM (BEAKER) (test code 8.4 mg/dL 8.4-10.2 = 697) AST (SGOT) (BEAKER) (test 24 U/L 5-34 code = 353) ALT (SGPT) (BEAKER) (test 21 U/L 6-55 code = 347) EGFR (BEAKER) (test code = 95 mL/min/1.73 sq m ESTIMATED GFR IS NOT 1092) ACCURATE CRE ATININE CLEARANCE IN UT EDICTING GLOMERULAR FILT RATION RATE. ESTIMATED GFR IS NOT APPLICABLE FOR DIALYSIS PATIENTS. Landscape Designer ID - PIAYA LCBC W/PLT COUNT & AUTO [id number] 04:09:00 Test Item Value Reference Range Interpretation Comments WHITE BLOOD CELL COUNT (BEAKER) 4.7 K/ L 3.5-10.5 (test code = 775) RED BLOOD CELL COUNT (BEAKER) 4.18 M/ L 3.93-5.22 (test code = 761) HEMOGLOBIN (BEAKER) (test code = 12.2 GM/DL 11.2-15.7 410) HEMATOCRIT (BEAKER) (test code = 37.0 % 34.1-44.9 411) MEAN CORPUSCULAR VOLUME (BEAKER) 88.5 fL 79.4-94.8 (test code = 753) MEAN CORPUSCULAR HEMOGLOBIN 29.2 pg 25.6-32.2 (BEAKER) (test code = 751) MEAN CORPUSCULAR HEMOGLOBIN CONC 33.0 GM/DL 32.2-35.5 (BEAKER) (test code = 752) RED CELL DISTRIBUTION WIDTH 13.0 % 11.7-14.4 (BEAKER) (test code = 412) PLATELET COUNT (BEAKER) (test 224 K/CU MM 150-450 code = 756) MEAN PLATELET VOLUME (BEAKER) 10.4 fL 9.4-12.3 (test code = 754) NUCLEATED RED BLOOD CELLS 0 /100 WBC 0-0 (BEAKER) (test code = 413) NEUTROPHILS RELATIVE PERCENT 62 % (BEAKER) (test code = 429) LYMPHOCYTES RELATIVE PERCENT 30 % (BEAKER) (test code = 430) MONOCYTES RELATIVE PERCENT 7 % (BEAKER) (test code = 431) EOSINOPHILS RELATIVE PERCENT 0 % (BEAKER) (test code = 432) BASOPHILS RELATIVE PERCENT 0 % (BEAKER) (test code = 437) NEUTROPHILS ABSOLUTE COUNT 2.95 K/ L 1.56-6.13 (BEAKER) (test code = 670) LYMPHOCYTES ABSOLUTE COUNT 1.41 K/ L 1.18-3.74 (BEAKER) (test code = 414) MONOCYTES ABSOLUTE COUNT (BEAKER) 0.35 K/ L 0.24-0.36 (test code = 415) EOSINOPHILS ABSOLUTE COUNT 0.01 K/ L 0.04-0.36 L (BEAKER) (test code = 416) BASOPHILS ABSOLUTE COUNT (BEAKER) 0.01 K/ L 0.01-0.08 (test code = 417) IMMATURE GRANULOCYTES-RELATIVE 0 % 0-1 PERCENT (BEAKER) (test code = 2801) HEPATIC FUNCTION [id number] 07:13:00 Test Item Value Reference Range Interpretation Comments TOTAL PROTEIN (BEAKER) (test code = 6.8 gm/dL 6.0-8.3 770) ALBUMIN (BEAKER) (test code = 1145) 3.6 g/dL 3.5-5.0 BILIRUBIN TOTAL (BEAKER) (test code 0.4 mg/dL 0.2-1.2 = 377) BILIRUBIN DIRECT (BEAKER) (test 0.2 mg/dL 0.1-0.5 code = 706) ALKALINE PHOSPHATASE (BEAKER) (test 120 U/L 40-150 code = 346) AST (SGOT) (BEAKER) (test code = 23 U/L 5-34 353) ALT (SGPT) (BEAKER) (test code = 18 U/L 6-55 347) Landscape Designer ID - PIAYA LBASIC METABOLIC [id number] 07:13:00 Test Item Value Reference Range Interpretation Comments SODIUM (BEAKER) 136 meq/L 136-145 (test code = 381) POTASSIUM (BEAKER) 3.6 meq/L 3.5-5.1 (test code = 379) CHLORIDE (BEAKER) 106 meq/L 98-107 (test code = 382) CO2 (BEAKER) (test 22 meq/L 22-29 code = 355) BLOOD UREA NITROGEN 8 mg/dL 7-21 (BEAKER) (test code = 354) CREATININE (BEAKER) 0.67 mg/dL 0.57-1.25 (test code = 358) GLUCOSE RANDOM 62 mg/dL 70-105 L (BEAKER) (test code = 652) CALCIUM (BEAKER) 8.2 mg/dL 8.4-10.2 L (test code = 697) EGFR (BEAKER) (test 98 mL/min/1.73 ESTIMA BRIAN GFR IS code = 1092) sq m NOT ACCURATE CREATININE CLEARANCE IN PREDICTING GLOMERULAR FILTRATION RATE . ESTIMATED GFR I S NOT APPLICABLE FOR DIALYSIS PATIEN TS. Landscape Designer ID - PIAYA LCBC W/PLT COUNT & AUTO [id number] 06:44:00 Test Item Value Reference Range Interpretation Comments WHITE BLOOD CELL COUNT (BEAKER) 4.7 K/ L 3.5-10.5 (test code = 775) RED BLOOD CELL COUNT (BEAKER) 4.03 M/ L 3.93-5.22 (test code = 761) HEMOGLOBIN (BEAKER) (test code = 11.8 GM/DL 11.2-15.7 410) HEMATOCRIT (BEAKER) (test code = 36.1 % 34.1-44.9 411) MEAN CORPUSCULAR VOLUME (BEAKER) 89.6 fL 79.4-94.8 (test code = 753) MEAN CORPUSCULAR HEMOGLOBIN 29.3 pg 25.6-32.2 (BEAKER) (test code = 751) MEAN CORPUSCULAR HEMOGLOBIN CONC 32.7 GM/DL 32.2-35.5 (BEAKER) (test code = 752) RED CELL DISTRIBUTION WIDTH 12.9 % 11.7-14.4 (BEAKER) (test code = 412) PLATELET COUNT (BEAKER) (test 220 K/CU MM 150-450 code = 756) MEAN PLATELET VOLUME (BEAKER) 10.8 fL 9.4-12.3 (test code = 754) NUCLEATED RED BLOOD CELLS 0 /100 WBC 0-0 (BEAKER) (test code = 413) NEUTROPHILS RELATIVE PERCENT 59 % (BEAKER) (test code = 429) LYMPHOCYTES RELATIVE PERCENT 33 % (BEAKER) (test code = 430) MONOCYTES RELATIVE PERCENT 8 % (BEAKER) (test code = 431) EOSINOPHILS RELATIVE PERCENT 0 % (BEAKER) (test code = 432) BASOPHILS RELATIVE PERCENT 0 % (BEAKER) (test code = 437) NEUTROPHILS ABSOLUTE COUNT 2.79 K/ L 1.56-6.13 (BEAKER) (test code = 670) LYMPHOCYTES ABSOLUTE COUNT 1.54 K/ L 1.18-3.74 (BEAKER) (test code = 414) MONOCYTES ABSOLUTE COUNT (BEAKER) 0.38 K/ L 0.24-0.36 H (test code = 415) EOSINOPHILS ABSOLUTE COUNT 0.00 K/ L 0.04-0.36 L (BEAKER) (test code = 416) BASOPHILS ABSOLUTE COUNT (BEAKER) 0.02 K/ L 0.01-0.08 (test code = 417) IMMATURE GRANULOCYTES-RELATIVE 0 % 0-1 PERCENT (BEAKER) (test code = 2801) HEPATOBILIARY [id number] 16:26:00Reason for exam:->eval for cholecystitis; COVID positiveFINAL REPORT PROCEDURE: HEPATOBILIARY SCAN CPT CODE: 00293 INDICATION: RUQ abdominal pain, cholecystitis PROTOCOL: 5.1 mCi of Tc-99m mebrofenin was injected intravenously. Images of the upper abdomen were obtained for approximately 120 minutes after tracer injection. Sincalide was not administered due to the lack of gallbladder filling. FINDINGS: Initial tracer uptake into the liver is physiological. Subsequent tracer clearance from the liver proceeds normally. There is good visualization of the extrahepatic biliary duct, and the tracer appears appropriately in the small bowel. The gallbladder is not visualized. IMPRESSION: 1. Cholecystitis. Signed: Jacoby Borjas MDReport Verified Date/Time: 05/05/2020 16:26:06 HEPATIC FUNCTION [id number] 07:03:00 Test Item Value Reference Range Interpretation Comments TOTAL PROTEIN (BEAKER) (test code = 6.6 gm/dL 6.0-8.3 770) ALBUMIN (BEAKER) (test code = 1145) 3.5 g/dL 3.5-5.0 BILIRUBIN TOTAL (BEAKER) (test code 0.3 mg/dL 0.2-1.2 = 377) BILIRUBIN DIRECT (BEAKER) (test 0.2 mg/dL 0.1-0.5 code = 706) ALKALINE PHOSPHATASE (BEAKER) (test 120 U/L 40-150 code = 346) AST (SGOT) (BEAKER) (test code = 18 U/L 5-34 353) ALT (SGPT) (BEAKER) (test code = 16 U/L 6-55 347) Landscape Designer ID - DBBASIC METABOLIC [id number] 07:03:00 Test Item Value Reference Range Interpretation Comments SODIUM (BEAKER) 135 meq/L 136-145 L (test code = 381) POTASSIUM (BEAKER) 3.5 meq/L 3.5-5.1 (test code = 379) CHLORIDE (BEAKER) 105 meq/L 98-107 (test code = 382) CO2 (BEAKER) (test 25 meq/L 22-29 code = 355) BLOOD UREA NITROGEN 6 mg/dL 7-21 L (BEAKER) (test code = 354) CREATININE (BEAKER) 0.67 mg/dL 0.57-1.25 (test code = 358) GLUCOSE RANDOM 70 mg/dL 70-105 (BEAKER) (test code = 652) CALCIUM (BEAKER) 8.3 mg/dL 8.4-10.2 L (test code = 697) EGFR (BEAKER) (test 98 mL/min/1.73 ESTIMA BRIAN GFR IS code = 1092) sq m NOT ACCURATE CREATININE CLEARANCE IN PREDICTING GLOMERULAR FILTRATION RATE . ESTIMATED GFR I S NOT APPLICABLE FOR DIALYSIS PATIEN TS. Landscape Designer ID - DBPROTHROMBIN [id number] 06:33:00 Test Item Value Reference Range Interpretation Comments PROTIME (BEAKER) (test code = 13.8 seconds 11.9-14.2 759) INR (BEAKER) (test code = 370) 1.1 <=5.9 Effective 04/13/2019: PT Reference Range ChangeNew: 11.9-14.2 Previous: 11.7- 14.7RECOMMENDED COUMADIN/WARFARIN INR THERAPY RANGESSTANDARD DOSE: 2.0-3.0 Includes: PROPHYLAXIS for venous thrombosis, systemic embolization; TREATMENT for venous thrombosis and/or pulmonary embolus.HIGH RISK: Target INR is2.5-3.5 for patients wiht mechanical heart valves.CBC W/PLT COUNT & AUTO [id number] 06:23:00 Test Item Value Reference Range Interpretation Comments WHITE BLOOD CELL COUNT (BEAKER) 3.6 K/ L 3.5-10.5 (test code = 775) RED BLOOD CELL COUNT (BEAKER) 4.02 M/ L 3.93-5.22 (test code = 761) HEMOGLOBIN (BEAKER) (test code = 11.5 GM/DL 11.2-15.7 410) HEMATOCRIT (BEAKER) (test code = 36.0 % 34.1-44.9 411) MEAN CORPUSCULAR VOLUME (BEAKER) 89.6 fL 79.4-94.8 (test code = 753) MEAN CORPUSCULAR HEMOGLOBIN 28.6 pg 25.6-32.2 (BEAKER) (test code = 751) MEAN CORPUSCULAR HEMOGLOBIN CONC 31.9 GM/DL 32.2-35.5 L (BEAKER) (test code = 752) RED CELL DISTRIBUTION WIDTH 13.1 % 11.7-14.4 (BEAKER) (test code = 412) PLATELET COUNT (BEAKER) (test 223 K/CU MM 150-450 code = 756) MEAN PLATELET VOLUME (BEAKER) 11.0 fL 9.4-12.3 (test code = 754) NUCLEATED RED BLOOD CELLS 0 /100 WBC 0-0 (BEAKER) (test code = 413) NEUTROPHILS RELATIVE PERCENT 60 % (BEAKER) (test code = 429) LYMPHOCYTES RELATIVE PERCENT 31 % (BEAKER) (test code = 430) MONOCYTES RELATIVE PERCENT 9 % (BEAKER) (test code = 431) EOSINOPHILS RELATIVE PERCENT 0 % (BEAKER) (test code = 432) BASOPHILS RELATIVE PERCENT 1 % (BEAKER) (test code = 437) NEUTROPHILS ABSOLUTE COUNT 2.12 K/ L 1.56-6.13 (BEAKER) (test code = 670) LYMPHOCYTES ABSOLUTE COUNT 1.09 K/ L 1.18-3.74 L (BEAKER) (test code = 414) MONOCYTES ABSOLUTE COUNT (BEAKER) 0.31 K/ L 0.24-0.36 (test code = 415) EOSINOPHILS ABSOLUTE COUNT 0.01 K/ L 0.04-0.36 L (BEAKER) (test code = 416) BASOPHILS ABSOLUTE COUNT (BEAKER) 0.02 K/ L 0.01-0.08 (test code = 417) IMMATURE GRANULOCYTES-RELATIVE 0 % 0-1 PERCENT (BEAKER) (test code = 2801) [id number] 04:02:00 Test Item Value Reference Range Interpretation Comments FERRITIN (BEAKER) (test code = 13.92 ng/mL 5.00-275.00 361) Landscape Designer ID - BUSHRA [id number] 03:31:00 Test Item Value Reference Range Interpretation Comments D-DIMER QUANTITATIVE (BEAKER) 0.27 MG/L FEU <0.50 (test code = 671) Intended Use: The D-Dimer Assay can be used to aid in the diagnosis of Deep Vein Thrombosis (DVT) and Pulmonary Embolism Disease (PED).In patients with low pre- test probability, various studies concerning STA Liatest D-dimer test have reported that with a cutoff value of 0.50 MG/L FEU, the Negative Predictive Value (NPV) regarding the exclusion of thrombosis is within 95-100% range. TROPONIN [id number] 03:29:00 Test Item Value Reference Range Interpretation Comments TROPONIN I (BEAKER) (test code = 397) < ng/mL 0.00-0.03 Troponin I (TnI) levels must be interpreted in the context of the presenting symptoms and the clinical findings. Elevated TnI levels indicate myocardial damage, but are not specific for ischemic heart disease. Elevated TnI levels are seen in patients with other cardiac conditions (including myocarditis and congestive heart failure), and slight TnI elevations occur in patients with other conditions, including sepsis, renal failure, acidosis, acute neurological disease, and persistent tachyarrhythmia.Landscape Designer ID - DBCREATINE KINASE (CK) 2020-05-04 03:23:00 Test Item Value Reference Range Interpretation Comments CREATINE KINASE TOTAL (BEAKER) (test 87 U/L 29-200 code = 380) Landscape Designer ID - DBLACTATE DEHYDROGENASE (LDH)2020-05-04 03:23:00 Test Item Value Reference Range Interpretation Comments LACTATE DEHYDROGENASE (BEAKER) (test 222 U/L 125-220 H code = 635) Landscape Designer ID - DBBASIC METABOLIC [id number] 03:23:00 Test Item Value Reference Range Interpretation Comments SODIUM (BEAKER) 138 meq/L 136-145 (test code = 381) POTASSIUM (BEAKER) 3.8 meq/L 3.5-5.1 (test code = 379) CHLORIDE (BEAKER) 107 meq/L 98-107 (test code = 382) CO2 (BEAKER) (test 26 meq/L 22-29 code = 355) BLOOD UREA NITROGEN 7 mg/dL 7-21 (BEAKER) (test code = 354) CREATININE (BEAKER) 0.67 mg/dL 0.57-1.25 (test code = 358) GLUCOSE RANDOM 90 mg/dL 70-105 (BEAKER) (test code = 652) CALCIUM (BEAKER) 8.9 mg/dL 8.4-10.2 (test code = 697) EGFR (BEAKER) (test 98 mL/min/1.73 ESTIMA BRIAN GFR IS code = 1092) sq m NOT ACCURATE CREATININE CLEARANCE IN PREDICTING GLOMERULAR FILTRATION RATE . ESTIMATED GFR I S NOT APPLICABLE FOR DIALYSIS PATIEN TS. Landscape Designer ID - DBHEPATIC FUNCTION [id number] 03:23:00 Test Item Value Reference Range Interpretation Comments TOTAL PROTEIN (BEAKER) (test code = 6.6 gm/dL 6.0-8.3 770) ALBUMIN (BEAKER) (test code = 1145) 3.6 g/dL 3.5-5.0 BILIRUBIN TOTAL (BEAKER) (test code 0.2 mg/dL 0.2-1.2 = 377) BILIRUBIN DIRECT (BEAKER) (test 0.1 mg/dL 0.1-0.5 code = 706) ALKALINE PHOSPHATASE (BEAKER) (test 143 U/L 40-150 code = 346) AST (SGOT) (BEAKER) (test code = 25 U/L 5-34 353) ALT (SGPT) (BEAKER) (test code = 17 U/L 6-55 347) Landscape Designer ID - [id number] TIME/[id number] 03:19:00 Test Item Value Reference Range Interpretation Comments PROTIME (BEAKER) (test code = 13.9 seconds 11.9-14.2 759) INR (BEAKER) (test code = 370) 1.1 <=5.9 Effective 04/13/2019: PT Reference Range ChangeNew: 11.9-14.2 Previous: 11.7- 14.7RECOMMENDED COUMADIN/WARFARIN INR THERAPY RANGESSTANDARD DOSE: 2.0-3.0 Includes: PROPHYLAXIS for venous thrombosis, systemic embolization; TREATMENT for venous thrombosis and/or pulmonary embolus.HIGH RISK: Target INR is2.5-3.5 for patients wiht mechanical heart valves.CBC W/PLT COUNT & AUTO [id number] 03:05:00 Test Item Value Reference Range Interpretation Comments WHITE BLOOD CELL COUNT (BEAKER) 4.9 K/ L 3.5-10.5 (test code = 775) RED BLOOD CELL COUNT (BEAKER) 4.02 M/ L 3.93-5.22 (test code = 761) HEMOGLOBIN (BEAKER) (test code = 11.9 GM/DL 11.2-15.7 410) HEMATOCRIT (BEAKER) (test code = 36.0 % 34.1-44.9 411) MEAN CORPUSCULAR VOLUME (BEAKER) 89.6 fL 79.4-94.8 (test code = 753) MEAN CORPUSCULAR HEMOGLOBIN 29.6 pg 25.6-32.2 (BEAKER) (test code = 751) MEAN CORPUSCULAR HEMOGLOBIN CONC 33.1 GM/DL 32.2-35.5 (BEAKER) (test code = 752) RED CELL DISTRIBUTION WIDTH 13.2 % 11.7-14.4 (BEAKER) (test code = 412) PLATELET COUNT (BEAKER) (test 220 K/CU MM 150-450 code = 756) MEAN PLATELET VOLUME (BEAKER) 10.7 fL 9.4-12.3 (test code = 754) NUCLEATED RED BLOOD CELLS 0 /100 WBC 0-0 (BEAKER) (test code = 413) NEUTROPHILS RELATIVE PERCENT 72 % (BEAKER) (test code = 429) LYMPHOCYTES RELATIVE PERCENT 18 % (BEAKER) (test code = 430) MONOCYTES RELATIVE PERCENT 9 % (BEAKER) (test code = 431) EOSINOPHILS RELATIVE PERCENT 0 % (BEAKER) (test code = 432) BASOPHILS RELATIVE PERCENT 0 % (BEAKER) (test code = 437) NEUTROPHILS ABSOLUTE COUNT 3.50 K/ L 1.56-6.13 (BEAKER) (test code = 670) LYMPHOCYTES ABSOLUTE COUNT 0.90 K/ L 1.18-3.74 L (BEAKER) (test code = 414) MONOCYTES ABSOLUTE COUNT (BEAKER) 0.44 K/ L 0.24-0.36 H (test code = 415) EOSINOPHILS ABSOLUTE COUNT 0.01 K/ L 0.04-0.36 L (BEAKER) (test code = 416) BASOPHILS ABSOLUTE COUNT (BEAKER) 0.02 K/ L 0.01-0.08 (test code = 417) IMMATURE GRANULOCYTES-RELATIVE 0 % 0-1 PERCENT (BEAKER) (test code = 2801) SARS-COV2/RT-PCR ([facility])2020-05-04 00:51:00 Test Item Value Reference Range Interpretation Comments SARS-COV2/RT-PCR (test code = Detected Not Detected, Negative A A [id number]) SARS-COV-2 PERFORMING LAB [facility] (test code = 9507041) Results are for the detection of SARS-CoV-2 RNA. The SARS-CoV-2 RNA is generally detectable in nasopharyngeal swab specimens during the acute phase of infection. Positive results are indicative of active infection with SARS-CoV-2; clinical correlation with patient history and other diagnostic information is necessary to determine patient infection status. Positive results do not rule out bacterial infection or co-infection with other viruses. The agent detected may not be the definite cause of disease. The limit of detection for this assay is 250 copies/mL.This SARS CoV-2 test is a rapid, uoep-zmtvBR-STA test intended for the qualitative detection of nucleic acid from SARS-CoV-2 in a nasopharyngeal swab specimen collected from individuals suspected of COVID-19 by their healthcare provider.This test has not been Food and Drug Administration (FDA) cleared or approved and has been authorized by FDA under an Emergency Use Authorization (EUA). This EUA will be effective until the declaration that ci rcumstances exist justifying the authorization of the emergency use of in vitro diagnostic tests fordetection and/or diagnosis of COVID-19 is terminated under Section 564(b)(2) of the Act or the EUA is revoked under Section 564(g) of the Act.Fact Sheet for Healthcare Providers:https://www.[employer]el[employer].com/ Documents/Xpert%20Xpress%20SARS%20CoV-2/Fact%20Sheets/302-4202%51OXUP-BCK-4%20HE ALTHCARE%20PROVIDERS%20FACT%20SHEET.pdfFact Sheet for Healthcare Patients:https://www.ClipClock/Documents/Xpert%20Xpress %20SARS%20CoV-2/Fact%20Sheets/302-1869%57SZFV-DSV-9%20PATIENT%20FACT%20SHEET.pdf Performing Laboratory:[facility] [place] [address]
[2022-01-09] MEDS ORDERED: dexAMETHasone 10 MG/ML VIAL ONE (11:46)
--- NOTE | 2022-01-09 12:15 | EDPHYS ---
Physician Documentation [facility] Name: Juanis Davis Age: 41 yrs Sex: Female : 1980 Arrival Date: 01/09/2022 Time: 10:27 Bed 16 Private MD: ED Physician Bubba Dias HPI: 01/09 11:31 This 41 yrs old Female presents to ER via Ambulatory with complaints of Allergic jmm Reaction, Itching. 11:31 The patient presents with itching. Onset: The symptoms/episode began/occurred gradually.jmm 12:11 Associated signs and symptoms: Pertinent positives: rash, Pertinent negatives: jmm shortness of breath, swelling. Possible causes: The patient has no known obvious cause for the symptoms. At home the patient or guardian has treated the symptoms with steroids. Recently finished a course of Solu-Medrol without relief.. Historical: - Allergies: 10:44 No Known Allergies; ab2 - PMHx: 10:44 None; ab2 - PSHx: 10:44 Cholecystectomy; ab2 - Immunization history:: Adult Immunizations up to date, Client reports having NOT received the Covid vaccine. - Social history:: Smoking status: Patient denies any tobacco usage or history of. ROS: 12:11 Constitutional: Negative for fever, chills, and weight loss, Cardiovascular: Negative jmm for chest pain, palpitations, and edema, Respiratory: Negative for shortness of breath, cough, wheezing, and pleuritic chest pain, Abdomen/GI: Negative for abdominal pain, nausea, vomiting, diarrhea, and constipation. 12:11 Skin: Positive for rash. 12:11 All other systems are negative. Exam: 12:11 Constitutional: This is a well developed, well nourished patient who is awake, alert, jmm and in no acute distress. 12:11 Eyes: EOMI, no conjunctival erythema appreciated ENT: Moist Mucus Membranes 12:11 Neck: Trachea midline, Supple 12:11 Cardiovascular: Regular rate and rhythm. No edema appreciated Respiratory: Normal respirations, no respiratory distress appreciated Abdomen/GI: Non distended, soft Back: Normal ROM 12:11 MS/ Extremity: Moves all extremities, no obvious deformities appreciated, no edema noted to the lower extremities Neuro: Awake and alert Psych: Behavior is normal, Mood is normal, Patient is cooperative and pleasant 12:11 Head/face: Ears erythematous bilaterally, nontender to palpation, warm to touch. 12:11 ENT: No pharyngeal edema appreciated. 12:11 Chest/axilla: Erythematous rash noted to the chest. 12:11 Skin: Erythematous rash noted to the chest, arms, cheeks, ears bilaterally. Vital Signs: 10:40 BP 155 / 95; Pulse 89; Resp 18; Temp 98.2(TE); Pulse Ox 99% on R/A; Weight 101.15 kg; ab2 Height 5 ft. 4 in. (162.56 cm); Pain 9/10; 11:50 BP 145 / 77; Pulse 80; Resp 16; Pulse Ox 98% ; Pain 0/10; cb5 10:40 Body Mass Index 38.28 (101.15 kg, 162.56 cm) ab2 MDM: 11:31 Patient medically screened. [facility] 12:13 Data reviewed: vital signs, nurses notes. Counseling: I had a detailed discussion with nemesio the patient and/or guardian regarding: the historical points, exam findings, and any diagnostic results supporting the discharge/admit diagnosis, the need for outpatient follow up, to return to the emergency department if symptoms worsen or persist or if there are any questions or concerns that arise at home. ED course: Patient is alert and nontoxic in appearance in the ED. Will begin a longer course of steroids as well as prescribed antipyretic medication to help alleviate symptoms. Patient advised to go to a cuffing machine operator for further evaluation otherwise given strict return precautions. Patient understood agrees plan of care.. Administered Medications: 11:50 Drug: Decadron (dexamethasone) 10 mg Route: IM; Site: left deltoid; cb5 Disposition: 17:40 Co-signature as Attending Physician, Bubba Dias MD I agree with the assessment and kdr plan of care. Disposition Summary: 01/09/22 12:14 Discharge Ordered Location: Home [facility] Condition: Stable [facility] Diagnosis - Rash and other nonspecific skin eruption [facility] Followup: [facility] - With: Private Physician - When: 2 - 3 days - Reason: Recheck today's complaints, Continuance of care, Re-evaluation by your physician Discharge Instructions: - Discharge Summary Sheet [facility] - Rash, Adult jmm Forms: - Medication Reconciliation Form [facility] - Thank You Letter [facility] - Antibiotic Education [facility] - Prescription Opioid Use [facility] Prescriptions: - Elimite 5 % Topical Cream - apply 1 application by TOPICAL route one time Wash after 12 hours.; 60 gram; [facility] Refills: 0, Product Selection Permitted - Hydroxyzine HCl 25 mg Oral Tablet - take 1 tablet by ORAL route every 6 hours As needed; 30 tablet; Refills: 0, [facility] Product Selection Permitted - Prednisone 20 mg Oral Tablet - take 3 tablets by ORAL route once daily for 12 days Please take 3 tabs by mouth [facility] daily for 3 days, then take 2 tabs by mouth daily for 3 days, then take 1 tab by mouth daily for 3 days, then take one half tab by day daily for 3 days; 20 tablet; Refills: 0, Product Selection Permitted Signatures: Bubba Dias MD MD kdr Mickail, Joel, PA PA jm Margo Underwood, RN RN cb5 Benito Joyner2
--- NOTE | 2022-01-09 12:15 | ER ---
Nurse's Notes [facility] Name: Juanis Davis Age: 41 yrs Sex: Female : 1980 Arrival Date: 01/09/2022 Time: 10:27 Bed 16 Private MD: Diagnosis: Rash and other nonspecific skin eruption Presentation: 01/09 10:40 Chief complaint: Patient states: "About 2 weeks ago I started having an out break of a ab2 rash in the groins and I thought it was just razor burn. I started putting cortisone on it and then got a yeast infection. I went to urgent care and they gave me meds for yeast infection. I then had a reaction to the medicines and broke out all over my body. The itchiness is getting worse and I don't know what to do."Pt denies chest pain and SOB. Coronavirus screen: Vaccine status: Patient reports being unvaccinated. Client denies travel out of the [place] in the last 14 days. At this time, the client does not indicate any symptoms associated with coronavirus-19. Ebola Screen: Patient negative for fever greater than or equal to 101.5 degrees Fahrenheit, and additional compatible Ebola Virus Disease symptoms Patient denies exposure to infectious person. Patient denies travel to an Ebola-affected area in the 21 days before illness onset. No symptoms or risks identified at this time. Onset: The symptoms/episode began/occurred gradually. Anaphylaxis evaluation, no signs or symptoms of anaphylaxis were noted. Initial Sepsis Screen: Does the patient meet any 2 criteria? No. Patient's initial sepsis screen is negative. Does the patient have a suspected source of infection? No. Patient's initial sepsis screen is negative. Risk Assessment: Do you want to hurt yourself or someone else? Patient reports no desire to harm self or others. Onset of symptoms is unknown. 10:40 Method Of Arrival: Ambulatory ab2 10:40 Acuity: FRANCIA 4 ab2 Triage Assessment: 10:45 General: Appears in no apparent distress. comfortable, Behavior is calm. Pain: ab2 Complains of pain in all over Quality of pain is described as burning. Historical: - Allergies: 10:44 No Known Allergies; ab2 - PMHx: 10:44 None; ab2 - PSHx: 10:44 Cholecystectomy; ab2 - Immunization history:: Adult Immunizations up to date, Client reports having NOT received the Covid vaccine. - Social history:: Smoking status: Patient denies any tobacco usage or history of. Screenin:54 Abuse screen: Denies threats or abuse. Denies injuries from another. Nutritional cb5 screening: No deficits noted. Tuberculosis screening: No symptoms or risk factors identified. Fall Risk None identified. Assessment: 10:46 Respiratory: Airway is patent Respiratory effort is even, unlabored, Respiratory ab2 pattern is regular, symmetrical, Breath sounds are clear. 10:51 General: Appears in no apparent distress. Behavior is calm, cooperative, appropriate cb5 for age. Pain:. 10:51 General: Appears Behavior is. Pain: Denies pain. Neuro: No deficits noted. cb5 Cardiovascular: No deficits noted. Respiratory: No deficits noted. GI: No deficits noted. : No deficits noted. EENT: No deficits noted. Derm: Rash noted that is itchy, papular, red, arms, neck, abd, face Reports itching. Musculoskeletal: No deficits noted. 12:14 Reassessment: Patient and/or family updated on plan of care and expected duration. Pain cb5 level reassessed. Vital Signs: 10:40 BP 155 / 95; Pulse 89; Resp 18; Temp 98.2(TE); Pulse Ox 99% on R/A; Weight 101.15 kg; ab2 Height 5 ft. 4 in. (162.56 cm); Pain 9/10; 11:50 BP 145 / 77; Pulse 80; Resp 16; Pulse Ox 98% ; Pain 0/10; cb5 10:40 Body Mass Index 38.28 (101.15 kg, 162.56 cm) ab2 ED Course: 10:27 Patient arrived in ED. am2 10:44 Triage completed. ab2 10:46 Arm band placed on right wrist. ab2 10:48 Robert Sal PA is PHCP. [facility] 10:48 Bubba Dias MD is Attending Physician. jm 10:49 Margo Underwood, PRINCESS is Primary Nurse. cb5 10:54 No provider procedures requiring assistance completed. cb5 10:55 Side rails up X 1. cb5 12:29 Patient did not have IV access during this emergency room visit. cb5 Administered Medications: 11:50 Drug: Decadron (dexamethasone) 10 mg Route: IM; Site: left deltoid; cb5 Outcome: 12:14 Discharge ordered by MD. herr 12:29 Discharged to home ambulatory. cb5 12: Condition: stable 12:29 Discharge instructions given to patient. 12:30 Patient left the ED. cb5 Signatures: Robert Sal PA PA jmm Moreno, Amanda am2 Boman, Colleen, RN RN cb5 Benito Joyner2
[2022-01-09 12:44] VITALS: TEMP 98.2
[2022-01-09 12:46] VITALS: BP 145/77; O2SAT 98
== END 2022-01-09 12:30 | disposition home or self-care (01) ==
LOC: ER 10:24
DX: R21 Rash and other nonspecific skin eruption (principal)
CPT/HCPCS: 96372; 99283; J1100

== ENCOUNTER 2022-01-29 12:15 | Emergency (ER) | payer OTHER ==
--- OUTSIDE RECORDS SUMMARY | 2022-01-29 12:18 | XMS REPORT | Continuity of Care Document ---
:1980 Author Organization [facility] t Address [address] Mcghee [address] [place] [id number] Care Team Providers Name Role Phone PCP, DOES NOT HAVE A Primary Care Physician Unavailable TALHA MOSCOSO Attending Clinician Unavailable THAIS MARTINEZ Attending Clinician Unavailable SUMIT Attending Clinician Unavailable Alvin STEELE Attending Clinician Unavailable Alvin Willis Attending Clinician Provider, Urgent Care Attending Clinician Unavailable KAITY Attending Clinician Unavailable TALHA MOSCOSO Admitting Clinician Unavailable THAIS MARTINEZ Admitting Clinician Unavailable GARCIA Admitting Clinician Unavailable Payers Payer Name Policy Type Policy Number Effective Date Expiration Date S ource CDC REVIEW [id number] 2020 00:00:00 ZZCDCREVIEW [id number] 2019 2019 00:00:00 00:00:[address] [facility] [id number] 2016 00:00:00 MEDICAID [place] [id number] 2020 00:00:00 Problems Condition Condition Condition Status Onset Resolution Last Treating Co mments Source Name Details Category Date Date Treatment Clinician Date Symptomati Symptomati Disease Active [facility] 8[facility]07 [facility] cholelithi cholelithi 00:00: Me dical asis asis 00 [place] COVID-19 COVID-19 Disease Active [facility] virus virus 6[facility]22 [facility] - detected detected 00:00: Medica l 00 [place] Acute Acute Disease Active [facility] cholecysti cholecysti 6-18 [facility]ra kes - tis tis 00:00: Medical 00 Center No known No known Disease Unive rs active active ity of problems problems [facility] Allergies, Adverse Reactions, Alerts Allergy Allergy Status Severity Reaction(s) Onset Inactive Treating Comm ents Source Name Type Date Date Clinician NO KNOWN Drug Active Univers ALLERGIE Class ity of S [facility] NO KNOWN Allergy Active [facility] Social History Social Habit Start Date Stop Date Quantity Comments Source History SDOH [facility] Std [facility] r Drinks History SDOH [facility] - Alcohol Binge Medical Rocio ter History SDOH [facility] - Alcohol Comment Medical C enter Exposure to Not sure [facility] SARS-CoV-2 [facility] (event) [place] Alcohol intake 2022-01-02 2022-01-02 Ex-drinker [facility] 00:00:00 00:00:00 (finding) [facility] Tobacco use and 2021-12-31 2021-12-31 Never used Universit y of exposure 00:00:00 00:00:00 [facility] History SDOH 2020-06-19 2020-06-[address] [facility] - Alcohol Frequency 00:00:00 00:00:00 [facility] Tobacco Comment 2020-05-04 2020-05-[address] [facility] - 00:00:00 00:00:00 they [facility] Sex Assigned At [birth year] [facility] - 00:00:00 00:00:00 [facility] Smoking Status Start Date Stop Date Source Never smoker [facility] Former smoker 2020-05-04 00:00:00 2020-05-04 00:00:[address] [facility] Medications Ordered Filled Start Stop Current Ordering Indication Dosage Frequency Signature Comments Components Source Medication Medication Date Date Medication? Clinician (SIG) Name Name methylPREDN Yes [id number] Take by Univers ISolone 2-17 mouth ity of (MEDROL, 00:00: SEE-INSTRU Scooter as INEZ,) 4 mg 00 CTIONS. Medica l tablets follow Branch package directions famotidine Yes [id number] 20mg Take 1 Univers 20 mg 2-17 tablet by ity of tablet 00:00: mouth 2 [place] 00 (two) Medical times Branch daily. fluconazole 2022-0 Yes Univer s 150 mg 2-15 ity of tablet 00:00: [place] 00 [facility] Branch acetaminoph 2020- No 650mg Take 2 CH [...] 2022-01-02 18:47:00 137 mm[Hg] Univer sity of [facility] Diastolic blood 2022-01-02 18:47:00 88 mm[Hg] [facility] 2022-01-02 18:46:00 79 /min [facility] Body temperature 2022-01-02 18:46:00 36.39 [facility] height 2022-01-02 18:46:00 162.6 cm [facility] Body weight 2022-01-02 18:46:00 102.921 kg [facility] BMI 2022-01-02 18:46:00 38.95 kg/m2 [facility] Oxygen saturation in 2022-01-02 18:46:00 98 /min [facility] Arterial blood by [place] Medi korey Pulse oximetry Branch HEIGHT 2020-06-12 00:00:00 [...] [facility] - Test 00:00:00 (#1) [code = [facility] INFLUENZA VACCINE (#1)] Future Scheduled [address] [facility] - Test 00:00:00 (12+) [code = Medical Center DEPRESSION SCREENING (12+)] Future Scheduled [address] [facility] - Test 00:00:00 (12+) [code = [facility] DEPRESSION SCREENING (12+)] Future Scheduled [address] [facility] - Test 00:00:00 [facility] cerv[facility]procedure) [code = 142826802] Future Scheduled [address] [facility] - Test 00:00:00 [facility] cervix (procedure) [code = 122500657] Future Scheduled [address] - Test 00:00:00 (procedure) [code = [facility] 51640995] Future Scheduled [address] - Test 00:00:00 (procedure) [code = [facility] 16745852] Future Scheduled 1999 DTAP/TDAP/TD VACCINES CH I [...] Clinicians Facility Department ID 2021-08-[address] [facility] Surgery [id number] [facility] 01:17:39 HERNAN 2020-05-[address] [facility] Gastro [id number] SLE 22:11:00 ANGELIC 2022-01-09 2022-01-09 Outpatient R [facility] [id number] Univers 16:00:00 16:00:00 [id number] [facility] 2022-01-09 2022-01-09 Outpatient R SUMIT [facility] [id number] Univers 16:00:00 16:00:00 MARCELO [facility] 2022-01-02 2022-01-02 [facility] [id number] Univers 12:30:00 13:09:33 SILVANA [facility] 2022-01-02 2022-01-02 [facility] [id number] Univers 12:30:00 13:09:33 Visit Silvana [facility] [id number] i ty of BUREAU [id number] Scooter as OTTO?BLEA [phone] Ia josh KAY [address] [place] [address] MEDICAL OFFICE BUILDING 2020-06-19 2020-06-19 Outpatient [facility] [id number] SLE 00:00:00 00:00:00 2020-06-03 2020-06-03 Letter Provider, [facility] [id number] 00:00:00 00:00:00 (Out) [facility] [id number] Care [place] [id number] Professio [phone] [place] [address] [address] 2020-05-15 2020-05-15 Outpatient TANNER BRICENO [facility] [id number] 00:00:00 00:00:00 BIJI Results Test Description Test Time Test Comments Results Result Comments Source TISSUE EXAM 2020-06-26 Surgical Pathology 11:16:00 Report Case: [id number] Authorizing Provider: Hernan Moscoso MD Collected: 06/22/2020 12:30 PM Ordering Location: [facility] PERIOPERATIVE Received: 06/22/2020 01:37 PM SERVICES Pathologist: Matthew Michael MD Specimen: Gallbladder A. GALL BLADDER, CHOLECYSTECTOMY: - CHRONIC CHOLECYSTITIS WITH CHOLELITHIASIS. - NEGATIVE FOR DYSPLASIA OR MALIGNANCY. Signing Pathologist Direct Phone Line: [phone] john signed by Matthew Michael MD on 06/26/2020 at 11:16 [id number] cholecystitis GallbladderA. Received fresh, labeled with the [...] 0.1-0.3 cm. No gross lesions are identified. Deicer Repairer sections are submitted.Section codeA1: Cystic duct margin, en faceA2: Gallbladder wallChelsea JOE Alejandro, ERIK (ASCP)Performed COMPREHENSIVE METABOLIC PANEL 2020-05-07 04:35:00 Test [...] NOT 1092) ACCURATE CRE ATININE CLEARANCE IN [place] EDICTING GLOMERULAR FILT RATION RATE. ESTIMATED GFR IS NOT APPLICABLE FOR DIALYSIS PATIENTS. Horseradish Maker ID - PIAYA LCBC W/PLT COUNT & AUTO [id number] 04:09:00 Test Item Value Reference Range Interpretation [...] (BEAKER) (test code = 2801) HEPATIC FUNCTION [id number] 07:13:00 Test Item Value Reference Range Interpretation [...] (test code = 18 U/L 6-55 347) Horseradish Maker ID - PIAYA LBASIC METABOLIC [id number] 07:13:00 Test Item Value Reference Range Interpretation [...] S NOT APPLICABLE FOR DIALYSIS PATIEN TS. Horseradish Maker ID - PIAYA LCBC W/PLT COUNT & AUTO [id number] 06:44:00 Test Item Value Reference Range Interpretation [...] PERCENT (BEAKER) (test code = 2801) HEPATOBILIARY [id number] 16:26:00Reason for exam:->eval for cholecystitis; COVID positiveFINAL REPORT PROCEDURE: HEPATOBILIARY SCAN CPT CODE: 04066 INDICATION: RUQ abdominal pain, cholecystitis PROTOCOL: 5.1 [...] MDReport Verified Date/Time: 05/05/2020 16:26:06 HEPATIC FUNCTION [id number] 07:03:00 Test Item Value Reference Range Interpretation [...] (test code = 16 U/L 6-55 347) Horseradish Maker ID - DBBASIC METABOLIC [id number] 07:03:00 Test Item Value Reference Range Interpretation [...] S NOT APPLICABLE FOR DIALYSIS PATIEN TS. Horseradish Maker ID - DBPROTHROMBIN [id number] 06:33:00 Test Item Value Reference Range Interpretation [...] mechanical heart valves.CBC W/PLT COUNT & AUTO [id number] 06:23:00 Test Item Value Reference Range Interpretation [...] 0-1 PERCENT (BEAKER) (test code = 2801) [id number] 04:02:00 Test Item Value Reference Range Interpretation Comments FERRITIN (BEAKER) (test code = 13.92 ng/mL 5.00-275.00 361) Horseradish Maker ID - BUSHRA [id number] 03:31:00 Test Item Value Reference Range Interpretation [...] of thrombosis is within 95-100% range. TROPONIN [id number] 03:29:00 Test Item Value Reference Range Interpretation [...] failure, acidosis, acute neurological disease, and persistent tachyarrhythmia.Horseradish Maker ID - DBCREATINE KINASE (CK) 2020-05-04 03:23:00 Test Item Value Reference Range Interpretation Comments CREATINE KINASE TOTAL (BEAKER) (test 87 U/L 29200 code = 380) Horseradish Maker ID - DBLACTATE DEHYDROGENASE (LDH)2020-05-04 03:23:00 Test Item Value Reference Range Interpretation Comments LACTATE DEHYDROGENASE (BEAKER) (test 222 U/L 125-220 H code = 635) Horseradish Maker ID - DBBASIC METABOLIC [id number] 03:23:00 Test Item Value Reference Range Interpretation [...] S NOT APPLICABLE FOR DIALYSIS PATIEN TS. Horseradish Maker ID - DBHEPATIC FUNCTION [id number] 03:23:00 Test Item Value Reference Range Interpretation [...] (test code = 17 U/L 6-55 347) Horseradish Maker ID - DBPROTHROMBIN [id number] 03:19:00 Test Item Value Reference Range Interpretation [...] mechanical heart valves.CBC W/PLT COUNT & AUTO [id number] 03:05:00 Test Item Value Reference Range Interpretation [...] PERCENT (BEAKER) (test code = 2801) SARS-COV2/RT-PCR ([facility])2020-05-04 00:51:00 Test Item Value Reference Range Interpretation Comments SARS-COV2/RT-PCR (test code = Detected Not Detected, Negative A A [id number]) SARS-COV-[address] [facility] (test code = 4632240) Results are for the detection of SARS-CoV-2 [...] copies/mL.This SARS CoV-2 test is a rapid, glhy-ombwSR-VHK test intended for the qualitative detection of [...] 564(g) of the Act.Fact Sheet for Healthcare Providers:https://www.[employer]opl[employer]/ Documents/Xpert%20Xpress%20SARS%20CoV-2/Fact%20Sheets/3023802%51WXPA-XKN-5%20HE ALTHCARE%20PROVIDERS%20FACT%20SHEET.pdfFact Sheet for Healthcare Patients:https://www.[employer]oplins/Documents/Xpert%20Xpress %20SARS%20CoV-2/Fact%20Sheets/3023801%50KXNV-SXY-6%20PATIENT%20FACT%20SHEET.pdf Performing Laboratory:[facility] [place] [address]
[2022-01-29] MEDS ORDERED: METHYLPREDNISOLONE 125 MG INJ ONE (12:51)
[2022-01-29] MEDS ORDERED: DIPHENHYDRAMINE 50 MG/ML VIAL ONE (12:51)
[2022-01-29] MEDS ORDERED: FAMOTIDINE 20 MG/2 ML VIAL IV ONE (12:51)
--- NOTE | 2022-01-29 13:51 | ER ---
Nurse's Notes [facility] Name: Juanis Davis Age: 41 yrs Sex: Female : 1980 Arrival Date: 01/29/2022 Time: 12:18 Bed 15 Private MD: Diagnosis: Rash and other nonspecific skin eruption Presentation: 01/29 12:25 Chief complaint: Patient states: "3-4 days ago after steroid completion, I started ag7 having rash to armpits, neck with itching". Coronavirus screen: Client denies travel out of the [place] in the last 14 days. At this time, the client does not indicate any symptoms associated with coronavirus-19. Ebola Screen: No symptoms or risks identified at this time. Initial Sepsis Screen: Does the patient meet any 2 criteria? No. Patient's initial sepsis screen is negative. Does the patient have a suspected source of infection? No. Patient's initial sepsis screen is negative. Risk Assessment: Do you want to hurt yourself or someone else? Patient reports no desire to harm self or others. Onset of symptoms was January 25, 2022. 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 Flu vaccine is not up to date. Patient has never been vaccinated. - Social history:: Smoking status: Patient denies any tobacco usage or history of. Screenin:35 Abuse screen: Denies threats or abuse. Nutritional screening: No deficits noted. lr4 Tuberculosis screening: No symptoms or risk factors identified. Fall Risk None identified. Assessment: 12:34 General: Appears in no apparent distress. comfortable, Behavior is calm, cooperative. lr4 Pain: Complains of pain in chest, right arm and left arm Pain currently is 7 out of 10 on a pain scale. Quality of pain is described as itching Pain began 1 wk ago Is intermittent, Alleviated by medications. Neuro: No deficits noted. Cardiovascular: No deficits noted. Respiratory: No deficits noted. Derm: Skin is intact, Rash noted that is macular, itchy, red, on chest, right arm and left arm Reports increased itching. Vital Signs: 12:25 BP 161 / 119; Pulse 79; Resp 16; Temp 98.6; Pulse Ox 100% on R/A; Weight 102.51 kg; ag7 Height 5 ft. 4 in. (162.56 cm); Pain 10/10; 12:37 BP 162 / 102; Pulse 90; Resp 20; Pulse Ox 96% ; lr4 14:06 BP 154 / 102; Pulse 72; Resp 18; Pulse Ox 99% on R/A; lr4 12:25 Body Mass Index 38.79 (102.51 kg, 162.56 cm) ag7 ED Course: 12:18 Patient arrived in ED. mr 12:25 Tacos Vargas PA is PHCP. jr8 12:25 Pravin Timmons DO is Attending Physician. jr8 12:28 Triage completed. ag7 12:29 Arm band placed on right wrist. ag7 12:33 Alva Haddad, PRINCESS is Primary Nurse. lr4 12:36 Patient has correct armband on for positive identification. Call light in reach. Side lr4 rails up X 1. Child being held by parent. 12:36 No provider procedures requiring assistance completed. lr4 12:49 Inserted saline lock: 20 gauge in right antecubital area, using aseptic technique. ww 14:07 Patient did not have IV access during this emergency room visit. lr4 14:07 Patient did not have IV access during this emergency room visit. IV discontinued, lr4 intact, bleeding controlled, No redness/swelling at site. Pressure dressing applied. Administered Medications: 13:11 Drug: SOLU-Medrol (methylPrednisoLONE) 125 mg Route: IVP; Site: right antecubital; lr4 14:08 Follow up: Response: Marked relief of symptoms lr4 13:11 Drug: Benadryl (diphenhydrAMINE) 25 mg Route: IVP; Site: right antecubital; lr4 14:08 Follow up: Response: Marked relief of symptoms lr4 13:12 Drug: Pepcid (famotidine) 20 mg Route: IVP; Site: right antecubital; lr4 14:08 Follow up: Response: Marked relief of symptoms lr4 Outcome: 12:38 Condition: stable lr4 13:50 Discharge ordered by . alejandra 14:07 Discharged to home ambulatory. lr4 14:07 Discharge instructions given to patient. 14:08 Patient left the ED. lr4 Signatures: Louann Anna mr SamTacos PA PA jr8 Roz Melendez RN RN ww Alva Haddad RN RN lr4 Zenobia Draper RN RN ag7
--- NOTE | 2022-01-29 13:51 | EDPHYS ---
Physician Documentation [facility] Name: Juanis Davis Age: 41 yrs Sex: Female : 1980 Arrival Date: 01/29/2022 Time: 12:18 Bed 15 Private MD: ED Physician Pravin Timmons HPI: 01/29 13:26 This 41 yrs old Female presents to ER via Ambulatory with complaints of Rash. jr8 13:26 The patient's rash thought to be caused by an unknown cause. The rash is located on the jr8 chest, right arm, left arm and neck. The rash can be described as erythematous, patchy. Onset: The symptoms/episode began/occurred acutely, today. Associated signs and symptoms: Pertinent positives: itching. Severity of symptoms: At their worst the symptoms were moderate in the emergency department the symptoms are unchanged. The patient has experienced similar episodes in the past, a few times. The patient has been recently seen by a physician:. This is a 41-year-old female that presented to the emergency room with complaints of rash. Patient stated that she has been suffering from an intermittent rash since this past December. Has had to have several rounds of steroids to suppress the rash and itching. Has been seen by her PCP but continues to have difficulty with the rash.. 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 Flu vaccine is not up to date. Patient has never been vaccinated. - Social history:: Smoking status: Patient denies any tobacco usage or history of. ROS: 13:26 Eyes: Negative for injury, pain, redness, and discharge, ENT: Negative for injury, jr8 pain, and discharge, Neck: Negative for injury, pain, and swelling, Cardiovascular: Negative for chest pain, palpitations, and edema, Respiratory: Negative for shortness of breath, cough, wheezing, and pleuritic chest pain, Abdomen/GI: Negative for abdominal pain, nausea, vomiting, diarrhea, and constipation, Back: Negative for injury and pain, MS/Extremity: Negative for injury and deformity, Neuro: Negative for headache, weakness, numbness, tingling, and seizure. 13:26 Skin: Positive for rash. Exam: 13:26 Constitutional: This is a well developed, well nourished patient who is awake, alert, jr8 and in no acute distress. Cardiovascular: Regular rate and rhythm with a normal S1 and S2. No gallops, murmurs, or rubs. Normal PMI, no JVD. No pulse deficits. Respiratory: Lungs have equal breath sounds bilaterally, clear to auscultation and percussion. No rales, rhonchi or wheezes noted. No increased work of breathing, no retractions or nasal flaring. Abdomen/GI: Soft, non-tender, with normal bowel sounds. No distension or tympany. No guarding or rebound. No evidence of tenderness throughout. Back: No spinal tenderness. No costovertebral tenderness. Full range of motion. MS/ Extremity: Pulses equal, no cyanosis. Neurovascular intact. Full, normal range of motion. Neuro: Awake and alert, GCS 15, oriented to person, place, time, and situation. Cranial nerves II-XII grossly intact. Motor strength 5/5 in all extremities. Sensory grossly intact. 13:26 Skin: Patient has patchy, erythematic rash, noted to the chest, anterior neck, and bilateral arms. Excoriations noted.. Vital Signs: 12:25 BP 161 / 119; Pulse 79; Resp 16; Temp 98.6; Pulse Ox 100% on R/A; Weight 102.51 kg; ag7 Height 5 ft. 4 in. (162.56 cm); Pain 10/10; 12:37 BP 162 / 102; Pulse 90; Resp 20; Pulse Ox 96% ; lr4 14:06 BP 154 / 102; Pulse 72; Resp 18; Pulse Ox 99% on R/A; lr4 12:25 Body Mass Index 38.79 (102.51 kg, 162.56 cm) ag7 MDM: 12:25 Patient medically screened. jr8 13:49 Data reviewed: vital signs, nurses notes, and as a result, I will discharge patient. jr8 Data interpreted: Pulse oximetry: on room air is 96 %. Interpretation: normal. Counseling: I had a detailed discussion with the patient and/or guardian regarding: the historical points, exam findings, and any diagnostic results supporting the discharge/admit diagnosis, the need for outpatient follow up, an allergy/specialist icu, a family practitioner, to return to the emergency department if symptoms worsen or persist or if there are any questions or concerns that arise at home. Response to treatment: the patient's symptoms have markedly improved after treatment. 01/29 12:40 Order name: IV; Complete Time: 12:49 jr8 Administered Medications: 13:11 Drug: SOLU-Medrol (methylPrednisoLONE) 125 mg Route: IVP; Site: right antecubital; lr4 14:08 Follow up: Response: Marked relief of symptoms lr4 13:11 Drug: Benadryl (diphenhydrAMINE) 25 mg Route: IVP; Site: right antecubital; lr4 14:08 Follow up: Response: Marked relief of symptoms lr4 13:12 Drug: Pepcid (famotidine) 20 mg Route: IVP; Site: right antecubital; lr4 14:08 Follow up: Response: Marked relief of symptoms lr4 Disposition: 15:50 Co-signature as Attending Physician, Pravin Timmons DO I agree with the assessment and ms3 plan of care. Disposition Summary: 01/29/22 13:50 Discharge Ordered Location: Home jr8 Problem: new jr8 Symptoms: have improved jr8 Condition: Stable jr8 Diagnosis - Rash and other nonspecific skin eruption jr8 Followup: jr8 - With: Private Physician - When: 2 - 3 days - Reason: Recheck today's complaints, Continuance of care, Re-evaluation by your physician Discharge Instructions: - Discharge Summary Sheet jr8 - Hives jr8 - Rash, Adult jr8 Forms: - Medication Reconciliation Form jr8 - Thank You Letter jr8 - Antibiotic Education jr8 - Prescription Opioid Use jr8 Prescriptions: - Hydroxyzine HCl 25 mg Oral Tablet - take 1 tablet by ORAL route every 8 hours As needed; 90 tablet; Refills: 0, jr8 Product Selection Permitted - Prednisone 20 mg Oral Tablet - take 2 tablets by ORAL route once daily for 5 days; 10 tablet; Refills: 0, jr8 Product Selection Permitted Signatures: Tacos Vargas PA PA jr8 Pravin Timmons DO DO ms3 Alva Haddad RN RN lr4 Baron, Zenobia, RN RN ag7
[2022-01-29 14:21] VITALS: TEMP 98.6
[2022-01-29 14:23] VITALS: BP 154/102; O2SAT 99
== END 2022-01-29 14:08 | disposition home or self-care (01) ==
LOC: ER 12:15
DX: R21 Rash and other nonspecific skin eruption (principal)
CPT/HCPCS: 96375; 96374; 99283; J1200; J2930

== ENCOUNTER 2025-09-05 20:56 | Emergency (ER) | payer OTHER, SELFPAY ==
[2025-09-05] MEDS ORDERED: ONDANSETRON 4 MG/2 ML VIAL ONE (21:23)
[2025-09-05] MEDS ORDERED: LORazepam 2 MG/ML VIAL ONE (21:23)
[2025-09-05 21:42] LABS: Absolute Lymphocytes (CBC) 2.1 K/uL (0.7-4.9); Hematocrit 39.8 % (36.0-45.0); Hemoglobin 13.2 g/dL (12.0-15.0); MCH 28.3 pg (27.0-35.0); MCHC 33.1 g/dL (32.0-36.0); MCV 85.7 fL (80-100); MPV 9.2 fL (7.6-11.3); Nucleated RBC Absolute Count 0.0 (0-0); Nucleated Red Blood Cells % 0.0 % (0-0); RBC Red Blood Cell Count 4.64 M/uL (3.86-4.86); White Blood Count 8.20 thou/uL (4.3-10.9)
[2025-09-05 21:52] LABS: ALT/SGPT 34 U/L (13-56); AST/SGOT 19 U/L (15-37); Albumin 3.1 g/dL (3.4-5.0); Albumin/Globulin Ratio 0.8 (1.1-1.8); Alkaline Phosphatase 164 U/L (45-117); Anion Gap 5.4 mEq/L (5.0-15.0); BUN Blood Urea Nitrogen 12 mg/dL (7-18); Globulin 4.0 g/dL (2.3-3.5); Glucose Level 129 mg/dL (74-106); Magnesium 1.8 mg/dL (1.6-2.4); Potassium 3.4 mEq/L (3.5-5.1)
[2025-09-05 21:54] LABS: Bilirubin Indirect, Calculated 0.0 mg/dL (0.2-0.8); Troponin High Sensitivity < 3.0 pg/mL (<58.9)
--- NOTE | 2025-09-05 22:17 | EDPHYS ---
Physician Documentation [facility] Name: Juanis Davis Age: 44 yrs Sex: Female : 1980 Arrival Date: 09/05/2025 Time: 20:56 Bed 14 Private MD: ED Physician Hayden Lima HPI: 09/05 21:11 This 44 yrs old Female presents to ER via Unassigned with complaints of High Blood kb Pressure, Headache, Dizziness, Nausea. 21:11 Patient is a 44-year-old female who presents for high blood pressure that has been kb ongoing all day. States that she has had some family issues today that has been causing her a lot of stress and being upset today. States around 1800 she was shopping and developed a headache and near syncope for she went home, took an Excedrin and took a nap. States her headache was gone however she woke up but she still had some nausea. States her mother came over at that point and checked her blood pressure with a home cuff and it was 202/105 so they decided to come in for evaluation. Patient states she does not have a PCP so she is not on any blood pressure medication but her blood pressure is always high when it has been checked. Historical: - PSHx: 21:20 Cholecystectomy; Ligation of fallopian tube; kd3 - Immunization history:: Adult Immunizations up to date. - Infectious Disease History:: Denies. - Social history:: Smoking status: Patient denies any tobacco usage or history of. ROS: 21:11 Constitutional: As per HPI kb Exam: 21:11 Head/Face: Normocephalic, atraumatic. ENT: Moist Mucous membranes Cardiovascular: kb Regular rate Respiratory: Respirations even and unlabored. No increased work of breathing. Talking in full sentences Skin: Warm, dry with normal turgor. Normal color. MS/ Extremity: Pulses equal, no cyanosis. Neurovascular intact. Full, normal range of motion. Neuro: Awake and alert, GCS 15, oriented to person, place, time, and situation. 21:11 Constitutional: The patient appears alert, awake, anxious, 21:15 ECG was reviewed by the Attending Physician. kb Vital Signs: 21:15 BP 162 / 81; Pulse 74; Resp 16; Temp 98.2(O); Pulse Ox 99% on R/A; Weight 109.77 kg; kd3 Height 5 ft. 3 in. ; 22:14 BP 147 / 88; Pulse 76; Resp 18; Pulse Ox 95% ; Pain 0/10; kt5 21:15 Body Mass Index 42.87 (109.77 kg, 160.02 cm) kd3 22:14 Pain Scale: Adult kt5 MDM: 21:02 Medical Screening Exam initiated 21:12 Data reviewed: vital signs, nurses notes. Historians other than the Patient: Parent: gregory mother. 22:17 Differential diagnosis: hypertensive crisis, Malignant HTN, stress reaction, cad. kb Counseling: I had a detailed discussion with the patient and/or guardian regarding the historical points, exam findings, and any diagnostic results supporting the discharge/admit diagnosis, the presence of at least one elevated blood pressure reading (>120/80) during this emergency department visit, lab results, radiology results, the need for outpatient follow up, a family practitioner, to return to the emergency department if symptoms worsen or persist or if there are any questions or concerns that arise at home. ED course: Symptoms improved after treatment. BP 140/74. Recommended to keep bp log and follow up with PCP. 09/05 21:10 Order name: Basic Metabolic Panel; Complete Time: 22:01 kb 09/05 21:10 Order name: CBC with Diff; Complete Time: 21:48 kb 09/05 21:10 Order name: Hepatic Function; Complete Time: 22:01 kb 09/05 21:10 Order name: Magnesium; Complete Time: 22:01 kb 09/05 21:10 Order name: Troponin High Sensitivity; Complete Time: 22:01 kb 09/05 21:10 Order name: Cardiac monitoring; Complete Time: 21:15 kb 09/05 21:10 Order name: EKG - Nurse/Tech; Complete Time: 21:15 kb 09/05 21:10 Order name: IV Saline Lock; Complete Time: 21:21 kb 09/05 21:10 Order name: Labs collected and sent; Complete Time: 21:21 kb 09/05 21:10 Order name: NPO; Complete Time: 21:15 kb 09/05 21:10 Order name: O2 Per Protocol; Complete Time: 21:15 kb 09/05 21:10 Order name: O2 Sat Monitoring; Complete Time: 21:15 kb EC:15 Rate is 66 beats/min. Rhythm is regular. QRS [place] is Normal. [place] interval is normal at kb 172 msec. QRS interval is normal at 97 msec. QT interval is normal at 423 msec. Administered Medications: 21:30 Drug: Ondansetron IVP 4 mg IVP once; over 2 minutes Route: IVP; Site: right antecubital;kd3 22:06 Follow up: Response: No adverse reaction; Nausea is decreased kt5 21:31 Drug: Ativan IVP 1 mg IVP once Route: IVP; Site: right antecubital; kd3 22:06 Follow up: Response: No adverse reaction; Anxiety decreased kt5 Disposition: 09/06 00:00 Co-signature as Attending Physician, Hayden Lima MD I agree with the assessment sp4 and plan of care. I reviewed the patient's care provided by Advanced Practice Provider \T\ agree w/ the diagnosis \T\ care plan. I personally saw the pt \T\ performed a substantive portion of the visit, incldng all aspects of the (History/Exam/Medical Decision Making). Disposition Summary: 09/05/25 22:16 Discharge Ordered Notes: Location: Home kb Condition: Stable kb Diagnosis - Acute stress reaction kb - Elevated blood-pressure reading, without diagnosis of hypertension kb Followup: kb - With: Emergency Department - When: As needed - Reason: Worsening of condition Followup: kb - With: Private Physician - When: 2 - 3 days - Reason: Recheck today's complaints, Continuance of care, Re-evaluation by your physician Discharge Instructions: - Discharge Summary Sheet kb - Hypertension, Adult, [id number] kb - Stress, Adult kb - Panic Attack, [id number] kb - Form - Blood Pressure Record Sheet kb Forms: - Medication Reconciliation Form kb - Antibiotic Education kb - Prescription Opioid Use kb - Patient Portal Instructions kb - Leadership Thank You Letter kb Signatures: Dispatcher [employer] Petra Jansen FNP-C FNP-Josselin Chan, RN RN renee3 Hayden Lima MD MD sp4 Ruthy Arndt RN kt5
--- NOTE | 2025-09-05 22:17 | ER ---
Nurse's Notes [facility] Name: Juanis Davis Age: 44 yrs Sex: Female : 1980 Arrival Date: 09/05/2025 Time: 20:56 Bed 14 Private MD: Diagnosis: Acute stress reaction;Elevated blood-pressure reading, without diagnosis of hypertension Presentation: 09/05 21:15 Chief complaint: Patient states: I have been having issues with my family lately that kd3 have been stressing me out. Historically when i get my blood pressure checked at the doctors office my blood pressure is always high but I have never been diagnosed with high blood pressure and I take no medications. Today I almost fainted while shopping and I had a headache so I took an Excedrin and took a nap and then I woke up and took my blood pressure and it was 220/105 so I came in. Coronavirus screen: Vaccine status: Patient reports being unvaccinated. Ebola Screen: No symptoms or risks identified at this time. Initial Sepsis Screen: Does the patient meet any 2 criteria? No. Patient's initial sepsis screen is negative. Does the patient have a suspected source of infection? No. Patient's initial sepsis screen is negative. Risk Assessment: Do you want to hurt yourself or someone else? Patient reports no desire to harm self or others. Onset of symptoms was September 05, 2025. 21:15 Method Of Arrival: Ambulatory kd3 21:15 Acuity: FRANCIA 3 kd3 Triage Assessment: 21:20 Headache History: Denies prior headaches. General: Appears in no apparent distress. kd3 Behavior is calm, cooperative. Pain: Denies pain. Neuro: Level of Consciousness is awake, alert, obeys commands, Oriented to person, place, time, situation. Historical: - PSHx: 21:20 Cholecystectomy; Ligation of fallopian tube; kd3 - Immunization history:: Adult Immunizations up to date. - Infectious Disease History:: Denies. - Social history:: Smoking status: Patient denies any tobacco usage or history of. Screenin:33 [facility] ED Fall Risk Assessment (Adult) History of falling in the last 3 months, kt5 including since admission No falls in past 3 months (0 pts) Confusion or Disorientation No (0 pts) Intoxicated or Sedated No (0 pts) Impaired Gait No (0 pts) Mobility Assist Device Used No (0 pt) Altered Elimination No (0 pt) Score/Fall Risk Level 0 - 2 = Low Risk Oriented to surroundings, Maintained a safe environment. Abuse screen: Denies threats or abuse. Nutritional screening: No deficits noted. Tuberculosis screening: No symptoms or risk factors identified. Assessment: 21:33 General: Appears in no apparent distress. comfortable, Behavior is calm, cooperative, kt5 appropriate for age. Pain: Denies pain. Neuro: No deficits noted. Coker Agitation-Sedation Scale (RASS): 0 - Alert and Calm Level of Consciousness is awake, alert, obeys commands, Oriented to person, place, time, situation, Appropriate for age. Cardiovascular: Denies chest pain, Capillary refill < 3 seconds Clubbing of nail beds is absent JVD is absent Pulses are all present. Edema is absent. Respiratory: No deficits noted. Airway is patent Trachea midline Respiratory effort is even, unlabored, Respiratory pattern is regular, symmetrical, Breath sounds are clear bilaterally. GI: No deficits noted. Abdomen is round non-distended, Bowel sounds present X 4 quads. Abd is soft and non tender X 4 quads. : No deficits noted. No signs and/or symptoms were reported regarding the genitourinary system. EENT: No deficits noted. Reports sore throat. Derm: Skin is intact, is healthy with good turgor, Skin is dry, Skin is pink, warm \T\ dry. normal. Musculoskeletal: No deficits noted. No signs and/or symptoms reported regarding the musculoskeletal system. 22:14 Reassessment: Patient appears in no apparent distress at this time. No changes from kt5 previously documented assessment. Patient and/or family updated on plan of care and expected duration. Pain level reassessed. Patient is alert, oriented x 3, equal unlabored respirations, skin warm/dry/pink. Patient denies pain at this time. Patient states feeling better. Patient states symptoms have improved. Vital Signs: 21:15 BP 162 / 81; Pulse 74; Resp 16; Temp 98.2(O); Pulse Ox 99% on R/A; Weight 109.77 kg; kd3 Height 5 ft. 3 in. ; 22:14 BP 147 / 88; Pulse 76; Resp 18; Pulse Ox 95% ; Pain 0/10; kt5 21:15 Body Mass Index 42.87 (109.77 kg, 160.02 cm) kd3 22:14 Pain Scale: Adult kt5 ED Course: 21:00 Patient arrived in ED. gm2 21:00 [facility] Val[facility]C [facility] kb 21:00 Hayden Lima MD is Attending Physician. kb 21:20 Triage completed. kd3 21:20 Arm band placed on right wrist. kd3 21:21 Basic Metabolic Panel Sent. kd3 21:21 CBC with Diff Sent. kd3 21:21 Hepatic Function Sent. kd3 21:21 Magnesium Sent. kd3 21:21 Troponin High Sensitivity Sent. kd3 21:21 Inserted saline lock: 22 gauge in right antecubital area, using aseptic technique. kd3 Blood collected. Flushed with 10 mL NS. 21:25 Ruthy Arndt, RN is Primary Nurse. kt5 21:33 Patient has correct armband on for positive identification. Bed in low position. Call kt5 light in reach. Side rails up X 1. Adult w/ patient. Client placed on continuous cardiac and pulse oximetry monitoring. NIBP monitoring applied. maintenance team member on. Door closed. Noise minimized. Warm blanket given. Pillow given. 22:33 Provided Education on: follow up. kt5 22:33 No provider procedures requiring assistance completed. IV discontinued, intact, kt5 bleeding controlled, No redness/swelling at site. Pressure dressing applied. Administered Medications: 21:30 Drug: Ondansetron IVP 4 mg IVP once; over 2 minutes Route: IVP; Site: right antecubital;kd3 22:06 Follow up: Response: No adverse reaction; Nausea is decreased kt5 21:31 Drug: Ativan IVP 1 mg IVP once Route: IVP; Site: right antecubital; kd3 22:06 Follow up: Response: No adverse reaction; Anxiety decreased kt5 Medication: 21:33 VIS not applicable for this client. kt5 Outcome: 22:16 Discharge ordered by . kb 22:33 Discharged to home with family, kt5 22:33 Condition: improved 22:33 Discharge instructions given to patient, family, Instructed on discharge instructions, follow up and referral plans. Demonstrated understanding of instructions, follow-up care, medications, 22:34 Patient left the ED. kt5 Signatures: Petra Valle FNP-C FNP-Ckb Doucette, Josselin, RN RN kd3 Dina Ruiz gm2 Ruthy Arndt, RN RN kt5
[2025-09-06 08:05] VITALS: TEMP 98.2
[2025-09-06 08:11] VITALS: BP 147/88; O2SAT 95
== END 2025-09-05 22:34 | disposition home or self-care (01) ==
LOC: ER 20:56
DX: F43.0 Acute stress reaction (principal); R03.0 Elevated blood-pressure reading, without diagnosis of hypertension
CPT/HCPCS: 36415; 80048; 80076; 83735; 84484; 85025; 93005; 96374; 96375; 99285; J2405